=== PATIENT | male | born 1965 | race Caucasian/White ===

== ENCOUNTER 2018-07-25 09:58 | Emergency (ER) | payer SELFPAY ==
[~2018-07-25] VITALS: Ht 175.3 cm; Wt 83.0 kg
[2018-07-25 10:31] LABS: BASOPHILS % (AUTO) 0 % (0-10); EOSINOPHILS % (AUTO) 1 % (0-10); HEMATOCRIT 38 % (40-54); HEMOGLOBIN 12.8 G/DL (13.3-17.7); LYMPHOCYTES % (AUTO) 16 % (12-44); MEAN CORPUSCULAR HEMOGLOBIN 29 PG (25-34); MEAN CORPUSCULAR HGB CONC 33 G/DL (32-36); MEAN CORPUSCULAR VOLUME 87 FL (80-99); MEAN PLATELET VOLUME 9.7 FL (7.4-10.4); MONOCYTES % (AUTO) 10 % (0-12); NEUTROPHILS # (AUTO) 8.9 X 10^3 (1.8-7.8); NEUTROPHILS % (AUTO) 72 % (42-75); PLATELET COUNT 329 10^3/uL (130-400); RED CELL DISTRIBUTION WIDTH 13.7 % (10.0-14.5); WHITE BLOOD COUNT 12.4 10^3/uL (4.3-11.0)
[2018-07-25 10:32] LABS: BASOPHILS # (AUTO) 0.1 10^3/uL (0.0-0.1); EOSINOPHILS # (AUTO) 0.1 10^3/uL (0.0-0.3); MONOCYTES # (AUTO) 1.3 X 10^3 (0.0-1.0)
[2018-07-25 10:52] LABS: BUN/CREATININE RATIO 9; CALCIUM 8.9 MG/DL (8.5-10.1); CARBON DIOXIDE 15 MMOL/L (21-32); CHLORIDE 98 MMOL/L (98-107); CREATININE SERUM 1.17 MG/DL (0.60-1.30); GFR ESTIMATED > 60; GLUCOSE 136 MG/DL (70-105); POTASSIUM 4.2 MMOL/L (3.6-5.0); SODIUM 133 MMOL/L (135-145)
[2018-07-25] MEDS ORDERED: morphine INJ 10 MG/ML 1ML (SYR OR VIAL) ONE (10:52)
[2018-07-25 10:53] LABS: ALANINE AMINOTRANSFERASE 19 U/L (0-55); ALBUMIN 3.6 GM/DL (3.2-4.5); ALKALINE PHOSPHATASE 67 U/L (40-136); BILIRUBIN,TOTAL 0.4 MG/DL (0.1-1.0)
[2018-07-25] MEDS ORDERED: morphine PF (DURAMORPH) 10 MG/10 ML AMP IV ONE (11:00)
[2018-07-25] MEDS ORDERED: methylPREDNISolone 125 MG (Solu-MEDROL) VIAL IVP ONE (11:00)
[2018-07-25] MEDS ORDERED: ONDANSETRON 4 MG/2 ML (SDV) Z0FRAN IVP ONE (11:00)
[2018-07-25] MEDS ORDERED: RT-ALBUTEROL/IPRATROPIUM 3 ML (DUONEB) VIAL INH ONE (11:00)
[2018-07-25] MEDS ORDERED: NS IV 1000 ML 1,000 ML IV SCH (11:30)
--- NOTE | 2018-07-25 11:31 | ED Cough/URI ---
General Chief Complaint: Respiratory Problems Stated Complaint: RT LUNG PAIN; SOB Nursing Triage Note: Patient reports shortness of breath and cough for 3 weeks, sudden worsening of shortness of breath and sudden onset of right chest pain at 5 am this morning. Sepsis Screen: Possible Sepsis Risk Source: patient Exam Limitations: no limitations History of Present Illness Date Seen by Provider: Jul 25, 2018 Time Seen by Provider: 10:00 Initial Comments 52-year-old male with history of COPD presents with productive cough, nasal congestion, rhinorrhea for the past 2 weeks who presents with acute onset right- sided chest wall pain awaking him from sleeping. Chest pain did awake patient from sleep. Resulting in COPD exacerbation. Patient has low-grade temperature 100.3. Denies productive cough. No wheezing, leg pain or swelling. No history of DVT, PE or CAD. No medications or therapies taken prior to arrival. Timing/Duration: this morning Severity/Quality: moderate, dry cough Prior Episodes/Possible Cause: no prior episodes Modifying Factors: Improves With Coughing Associated Symptoms: cough, dizziness, earache, fever/chills Allergies and Home Medications Allergies Coded Allergies: No Known Drug Allergies (Unverified , 07/25/18) Patient Home Medication List Home Medication List Reviewed: Yes Review of Systems Review of Systems Constitutional: fever, malaise EENTM: nose congestion Respiratory: cough, short of breath Cardiovascular: chest pain; No edema, No palpitations, No syncope Gastrointestinal: no symptoms reported Genitourinary: no symptoms reported Musculoskeletal: no symptoms reported Skin: no symptoms reported Psychiatric/Neurological: No Symptoms Reported Hematologic/Lymphatic: No Symptoms Reported Past Mvaipko-Qybvyf-Pbmmts Hx Past Med/Social Hx: Reviewed Nursing Past Med/Soc Hx Patient Social History Recent Foreign Travel: No Contact w/Someone Who Travel: No Recent Infectious Disease Expo: No Physical Exam Vital Signs - First Documented 07/25/18 10:08 Temp 100.3 Pulse 97 Resp 28 B/P (MAP) 120/74 (89) Pulse Ox 98 O2 Delivery Room Air Capillary Refill : Less Than 3 Seconds Height: 5'9.00" Weight: 183lbs. oz. 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 as tested Progress/Results/Core Measures Suspected Sepsis Recent Fever Within 48 Hours: Yes Infection Criteria Present: Suspected New Infection New/Unexplained Altered Menta: No Sepsis Screen: Possible Sepsis Risk SIRS Temperature:100.3 Pulse: 97 Respiratory Rate: 28 Laboratory Tests 07/25/18 10:18: White Blood Count 12.4H Blood Pressure 120 /74 Mean: 89 Laboratory Tests 07/25/18 10:18: Creatinine 1.17, Platelet Count 329, Total Bilirubin 0.4 Results/Orders Lab Results Laboratory Tests Test 07/25/18 10:18 Range/Units White Blood Count 12.4 H 4.3-11.0 10^3/uL Red Blood Count 4.42 4.35-5.85 10^6/uL Hemoglobin 12.8 L 13.3-17.7 G/DL Hematocrit 38 L 40-54 % Mean Corpuscular Volume 87 80-99 FL Mean Corpuscular Hemoglobin 29 25-34 PG Mean Corpuscular Hemoglobin Concent 33 32-36 G/DL Red Cell Distribution Width 13.7 10.0-14.5 % Platelet Count 329 130-400 10^3/uL Mean Platelet Volume 9.7 7.4-10.4 FL Neutrophils (%) (Auto) 72 42-75 % Lymphocytes (%) (Auto) 16 12-44 % Monocytes (%) (Auto) 10 0-12 % Eosinophils (%) (Auto) 1 0-10 % Basophils (%) (Auto) 0 0-10 % Neutrophils # (Auto) 8.9 H 1.8-7.8 X 10^3 Lymphocytes # (Auto) 2.0 1.0-4.0 X 10^3 Monocytes # (Auto) 1.3 H 0.0-1.0 X 10^3 Eosinophils # (Auto) 0.1 0.0-0.3 10^3/uL Basophils # (Auto) 0.1 0.0-0.1 10^3/uL D-Dimer 1.03 H 0.00-0.49 UG/ML Sodium Level 133 L 135-145 MMOL/L Potassium Level 4.2 3.6-5.0 MMOL/L Chloride Level 98 98-107 MMOL/L Carbon Dioxide Level 15 L 21-32 MMOL/L Anion Gap 20 H 5-14 MMOL/L Blood Urea Nitrogen 11 7-18 MG/DL Creatinine 1.17 0.60-1.30 MG/DL Estimat Glomerular Filtration Rate > 60 BUN/Creatinine Ratio 9 Glucose Level 136 H 70-105 MG/DL Calcium Level 8.9 8.5-10.1 MG/DL Corrected Calcium 9.2 8.5-10.1 MG/DL Total Bilirubin 0.4 0.1-1.0 MG/DL Aspartate Amino Transf (AST/SGOT) 20 5-34 U/L Alanine Aminotransferase (ALT/SGPT) 19 0-55 U/L Alkaline Phosphatase 67 40-136 U/L Total Protein 8.0 6.4-8.2 GM/DL Albumin 3.6 3.2-4.5 GM/DL Micro Results Microbiology 07/25/18 Influenza Types A,B Antigen (WILLIAM) - Final, Complete My Orders Orders - LINDSAY HENNING DO Chest Pa/Lat (2 View) (07/25/18 10:17) Cbc With Automated Diff (07/25/18 10:20) Comprehensive Metabolic Panel (07/25/18 10:20) Fibrin Degradation Products (07/25/18 10:20) Influenza A And B Antigens (07/25/18 10:48) Morphine Pf Inj (Duramorph Pf Inj) (07/25/18 11:00) Ondansetron Injection (Zofran Injectio (07/25/18 11:00) Methylprednisolone Sod Succ (Solu-Medrol (07/25/18 11:00) Albuterol/Ipra Inhalation Soln (Duoneb I (07/25/18 11:00) Svn Small Volume Nebulizer (07/25/18 10:48) Morphine Injection (Morphine Injection (07/25/18 10:52) Ct Angio Chest W (07/25/18 11:16) Ns Iv 1000 Ml (Sodium Chloride 0.9%) (07/25/18 11:30) Iopamidol 61% Injection (Isovue 300 61% (07/25/18 11:45) Sodium Chloride Flush (Catheter Flush Sy (07/25/18 11:45) Contrast Received (Contrast Received) (07/25/18 11:45) Ns (Ivpb) (Sodium Chloride 0.9% Ivpb Bag (07/25/18 11:45) Azithromycin Tablet (Zithromax Tablet) (07/25/18 12:30) Levofloxacin Tablet (Levaquin Tablet) (07/25/18 12:30) Medications Given in ED Current Medications Medications Dose Ordered Sig/Shalonda Route Start Time Stop Time Status Last Admin Dose Admin Albuterol/ Ipratropium 3 ml ONCE ONCE INH 07/25/18 11:00 07/25/18 11:01 DC 07/25/18 10:57 3 ML Iopamidol 100 ml ONCE ONCE IV 07/25/18 11:45 07/25/18 11:52 DC 07/25/18 11:51 125 ML Methylprednisolone Sodium Succinate 125 mg ONCE ONCE IVP 07/25/18 11:00 07/25/18 11:01 DC 07/25/18 10:56 125 MG Morphine Sulfate 10 mg STK-MED ONCE .ROUTE 07/25/18 10:52 07/25/18 10:55 DC 07/25/18 10:57 4 MG Ondansetron HCl 4 mg ONCE ONCE IVP 07/25/18 11:00 07/25/18 11:01 DC 07/25/18 10:56 4 MG Sodium Chloride 10 ml NEEDED PRN IV 07/25/18 11:45 07/25/18 11:52 10 ML Sodium Chloride 50 ml ONCE ONCE IV 07/25/18 11:45 07/25/18 11:52 DC 07/25/18 11:52 50 ML Vital Signs/I&O 07/25/18 07/25/18 10:08 11:58 Temp 100.3 101.0 Pulse 97 100 Resp 28 24 B/P (MAP) 120/74 (89) 141/79 (99) Pulse Ox 98 96 O2 Delivery Room Air Room Air Capillary Refill : Less Than 3 Seconds Blood Pressure Mean: 89 Departure Impression Primary Impression: Pneumonia Additional Impressions: COPD with exacerbation Chest wall pain Disposition: HOME, SELF-CARE Condition: Stable Departure-Patient Inst. Decision time for Depature: 12:34 Referrals: RADHA MOJICA DO (PCP/Family) Primary Care Physician Patient Instructions: Pneumonia, Adult (DC) Add. Discharge Instructions: All discharge instructions reviewed with patient and/or family. Voiced understanding. Scripts Albuterol Sulfate (Proventil Hfa) 6.7 Gm Hfa.aer.ad 6.7 GM INH Q6H, #1 GM 0 Refills Prov: LINDSAY HENNING DO 07/25/18 Hydrocodone/Acetaminophen ([place] 10-325 Tablet) 1 Each Tablet 1 TAB PO Q6H PRN for PAIN-MODERATE MDD 5, #15 TAB Prov: LINDSAY HENNING DO 07/25/18 Prednisone (Prednisone) 20 Mg Tab 80 MG PO DAILY, #6 TAB 0 Refills Prov: LINDSAY HENNING DO 07/25/18 Levofloxacin (Levaquin) 750 Mg Tablet 750 MG PO DAILY, #7 TAB Prov: LINDSAY HENNING DO 07/25/18 LINDSAY HENNING DO Jul 25, 2018 11:30
[2018-07-25] MEDS ORDERED: NS 50 ML (IVPB) BAG IV ONE (11:45)
[2018-07-25] MEDS ORDERED: CATHETER FLUSH 10 ML SYR IV PRN (11:45)
[2018-07-25] MEDS ORDERED: RECEIVED CONTRAST 20 ML VIAL IV SCH (11:45)
[2018-07-25] MEDS ORDERED: IOPAMIDOL 61% 100 ML (ISOVUE 300) VIAL IV ONE (11:45)
[2018-07-25 11:58] VITALS: BP 141/79
--- NOTE | 2018-07-25 12:29 | Diagnostic Imaging Report ---
INDICATION: Cough. PA and lateral views of the chest were obtained. FINDINGS: There is a right middle lobe pneumonia. The heart size is normal. There is no pleural effusion or pneumothorax. Mediastinum is unremarkable. IMPRESSION: Right middle lobe pneumonia. Dictated by: Dictated on workstation # [id number]
[2018-07-25] MEDS ORDERED: LEVOFLOXACIN 750 MG TAB (LEVAQUIN) PO ONE (12:30)
[2018-07-25] MEDS ORDERED: AZITHROMYCIN 250 MG TAB (ZITHROMAX) PO ONE (12:30)
[2018-07-25] MEDS ORDERED: LEVO750T9 PO (12:38)
[2018-07-25] MEDS ORDERED: ALBU6.7H8 INH (12:38)
[2018-07-25] MEDS ORDERED: HYDR-4196 PO (12:38)
[2018-07-25] MEDS ORDERED: PRD20T PO (12:38)
[2018-07-25 12:48] VITALS: BP 129/81
--- NOTE | 2018-07-25 12:51 | Diagnostic Imaging Report ---
PROCEDURE: CT angiography of the chest with contrast. TECHNIQUE: Multiple contiguous axial images were obtained through the chest after uneventful bolus administration of intravenous contrast. 2D reconstructed CTA MIP acquisitions were also performed. INDICATION: Cough and chest pain. FINDINGS: There is an extensive right middle lobe pneumonia. The thoracic aorta is normal in caliber and without evidence of dissection. There are no filling defects seen within the pulmonary arteries to suggest pulmonary embolism. There is no pleural or pericardial fluid. There is no pneumothorax. There is no pathologically enlarged adenopathy in the chest. The visualized intra-abdominal structures are grossly unremarkable. There are mild degenerative changes in the spine. IMPRESSION: 1. Extensive right middle lobe pneumonia. 2. No evidence of pulmonary embolism or aortic dissection. Dictated by: Dictated on workstation # [id number]
[2018-07-25] MEDS ORDERED: LEVOFLOXACIN 500 MG TAB (LEVAQUIN) ONE (12:52)
[2018-07-25 13:15] VITALS: BP 129/81
== END 2018-07-25 13:20 | disposition home or self-care (01) ==
LOC: ER FS 10:01
DX: J18.9 Pneumonia, unspecified organism (principal); J44.1 Chronic obstructive pulmonary disease with (acute) exacerbation; R07.89 Other chest pain
CPT/HCPCS: 36415; 71046; 71275; 80053; 85025; 85379; 87804

== ENCOUNTER 2018-09-25 02:26 | Emergency (ER) | payer SELFPAY ==
[~2018-09-25] VITALS: Ht 175.3 cm; Wt 81.6 kg
[~2018-09-25 02:26] MED LIST: ALBU6.7H8 INH; HYDR-4196 PO; LEVO750T9 PO; PRD20T PO
--- OUTSIDE RECORDS SUMMARY | 2018-09-25 02:31 | XMS REPORT ---
Author HENRY Jones [facility] Address [address] [place], [place] [id number] Care Team Providers Care Hoisting Engineer Name Role Phone HENRY ALVARADO PCP Allergies and Adverse Reactions Not available. Plan of Treatment Not available. Medications Not available. Problem List Not available. Vital Signs Date Time BP-Sys(mm[Hg] BP-Brit(mm[Hg]) HR(bpm) RR(rpm) Temp WT HT HC BMI BSA BMI Percentile O2 Sat(%) 08/15/2018 9:57:00 AM 140 mmHg 88 mmHg 78 bpm 18 rpm 98.1 F 188 lbs 68 in 28.585 kg/m 2.0227 m 98 % Social History Not available. History of Procedures Not available. Results Summary Not available. History Of Immunizations Not available. 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 History of Encounters Visit Date Visit Type Provider 08/15/2018 Office visit HENRY ALCANTARA
[2018-09-25] MEDS ORDERED: LIDOCAINE/EPI 2% 1:100,00 (XYLOCAINE) 20 ML VIAL ONE (02:35)
[2018-09-25] MEDS ORDERED: LIDOCAINE/EPI 1%-1:100,000 (XYLOCAINE) 20ML INJ ONE (02:45)
[2018-09-25] MEDS ORDERED: oxyCODONE/APAP 10/325MG (PERCOCET 10) TABLET PO ONE (03:30)
[2018-09-25] MEDS ORDERED: CEPHALEXIN 250 MG (KEFLEX) CAP PO ONE (03:30)
[2018-09-25] MEDS ORDERED: TETANUS,DIPTH,PERTUSS P/F (BOOSTRIX) 0.5 ML VIAL IM ONE (03:30)
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
[2018-09-25] MEDS ORDERED: CEPH-507 PO (03:44)
[2018-09-25] MEDS ORDERED: OXYC1TAB87 PO (03:44)
[2018-09-25 03:52] VITALS: BP 151/100
[2018-09-25] MEDS ORDERED: HYDROcodone/APAP 10 MG/325 MG (LORTAB) TAB PO ONE (04:00)
== END 2018-09-25 03:52 | disposition home or self-care (01) ==
LOC: EDUNIT# 02:26 → ER FS 02:28
DX: S01.441A Puncture wound with foreign body of right cheek and temporomandibular area, initial encounter (principal); S61.031A Puncture wound without foreign body of right thumb without damage to nail, initial encounter; S41.032A Puncture wound without foreign body of left shoulder, initial encounter; J44.9 Chronic obstructive pulmonary disease, unspecified; F17.210 Nicotine dependence, cigarettes, uncomplicated; Z23 Encounter for immunization; Z86.73 Personal history of transient ischemic attack (TIA), and cerebral infarction without residual deficits; Z79.52 Long term (current) use of systemic steroids; X99.1XXA Assault by knife, initial encounter
CPT/HCPCS: 12014; 12015; 29125; 90715

== ENCOUNTER 2018-10-07 17:32 | Emergency (ER) | payer SELFPAY ==
[~2018-10-07] VITALS: Ht 177.8 cm; Wt 83.9 kg
[~2018-10-07 17:32] MED LIST changes: +CEPH-507 PO; +OXYC1TAB87 PO
[2018-10-07] MEDS ORDERED: FUROSEMIDE 40 MG/4 ML INJ (LASIX) IVP ONE (17:45)
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
[2018-10-07 18:12] VITALS: BP 161/81
== END 2018-10-07 18:12 | disposition home or self-care (01) ==
LOC: EDUNIT# 17:32 → ER FS 17:33
DX: S01.81XD Laceration without foreign body of other part of head, subsequent encounter (principal); S61.011D Laceration without foreign body of right thumb without damage to nail, subsequent encounter; J44.9 Chronic obstructive pulmonary disease, unspecified; Z77.22 Contact with and (suspected) exposure to environmental tobacco smoke (acute) (chronic); Z79.52 Long term (current) use of systemic steroids; X99.9XXD Assault by unspecified sharp object, subsequent encounter

== ENCOUNTER 2021-05-19 17:03 | Day surgery (SDC) | payer OTHER ==
[~2021-05-19] VITALS: Ht 175 cm; Wt 87.5 kg
[2021-05-19] MEDS ORDERED: ASPIRIN 81 MG CHEW (CHILDREN'S ASA) ONE (17:22)
[2021-05-19] MEDS ORDERED: CLOPIDOGREL 300 MG (PLAVIX) TABLET PO ONE ×2 (17:22→17:30)
[2021-05-19 17:25] LABS: BASOPHILS % (AUTO) 1 % (0-10); EOSINOPHILS % (AUTO) 3 % (0-10); HEMATOCRIT 44 % (40-54); HEMOGLOBIN 14.4 g/dL (13.3-17.7); LYMPHOCYTES % (AUTO) 33 % (12-44); MEAN CORPUSCULAR HEMOGLOBIN 29 pg (25-34); MEAN CORPUSCULAR HGB CONC 32 g/dL (32-36); MEAN CORPUSCULAR VOLUME 89 fL (80-99); MEAN PLATELET VOLUME 9.4 fL (9.0-12.2); MONOCYTES % (AUTO) 7 % (0-12); NEUTROPHILS % (AUTO) 57 % (42-75); PLATELET COUNT 343 10^3/uL (130-400); WHITE BLOOD COUNT 9.5 10^3/uL (4.3-11.0)
[2021-05-19 17:26] LABS: BASOPHILS # (AUTO) 0.1 10^3/uL (0.0-0.1); EOSINOPHILS # (AUTO) 0.3 10^3/uL (0.0-0.3); LYMPHOCYTES # (AUTO) 3.1 X 10^3 (1.0-4.0); MONOCYTES # (AUTO) 0.6 X 10^3 (0.0-1.0); NEUTROPHILS # (AUTO) 5.4 X 10^3 (1.8-7.8)
[2021-05-19 17:30] VITALS: BP 134/84
[2021-05-19] MEDS ORDERED: ONDANSETRON 4 MG/2 ML (SDV) Z0FRAN IVP ONE (17:30)
[2021-05-19] MEDS ORDERED: ASPIRIN 81 MG CHEW (CHILDREN'S ASA) PO ONE (17:30)
[2021-05-19] MEDS ORDERED: ENOXAPARIN 100 MG/1 ML (LOVENOX) SYR SC ONE (17:30)
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
[2021-05-19 17:35] LABS: SODIUM 138 MMOL/L (135-145)
[2021-05-19 17:36] LABS: ALANINE AMINOTRANSFERASE 20 U/L (0-55); ALBUMIN 4.1 GM/DL (3.2-4.5); ALKALINE PHOSPHATASE 70 U/L (40-136); BILIRUBIN,TOTAL 0.2 MG/DL (0.1-1.0); BUN/CREATININE RATIO 8; CALCIUM 8.5 MG/DL (8.5-10.1); CARBON DIOXIDE 23 MMOL/L (21-32); CHLORIDE 103 MMOL/L (98-107); CREATININE SERUM 1.31 MG/DL (0.60-1.30); GFR ESTIMATED 56; GLUCOSE 157 MG/DL (70-105); POTASSIUM 3.8 MMOL/L (3.6-5.0); TOTAL PROTEIN 7.5 GM/DL (6.4-8.2)
[2021-05-19] MEDS ORDERED: VERAPAMIL 5 MG/2 ML (CALAN) VIAL IV ONE (17:45)
[2021-05-19] MEDS ORDERED: fentaNYL INJ 100 MCG/2 ML AMP ONE (17:46)
[2021-05-19] MEDS ORDERED: LIDOCAINE 1% INJ 20 ML 20 ML VIAL ONE (17:46)
[2021-05-19] MEDS ORDERED: NS IV 1000 ML 1,000 ML ONE (17:46)
[2021-05-19] MEDS ORDERED: HEParin (CATH LAB) 2,000 ML IV ONE (17:46)
[2021-05-19] MEDS ORDERED: HEParin 1000 UNIT/ML (10ML VIAL) FOR BOLUS ONE (17:46)
[2021-05-19] MEDS ORDERED: NITRO DRIP 25000 MCG/D5W 250 ML IV ONE (17:46)
[2021-05-19] MEDS ORDERED: MIDAZOLAM 5 MG/5 ML (VERSED) VIAL ONE (17:46)
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
--- NOTE | 2021-05-19 18:01 | Pre-Op Note & Conscious Sedat ---
Pre-Operative Progress Note H&P Reviewed The H&P was reviewed, patient examined and no changes noted. Date H&P Reviewed: May 19, 2021 Time H&P Reviewed: 18:08 Pre-Op Diagnosis: Inferior STEMI Conscious Sedation Pre-Proced ASA Score 3 For ASA 3 and 4: Consider anesthesia and medical clearance. Also, for patients with a history of failed moderate sedation consider anesthesia. Airway Lungs Heart ASA score ASA 1: a normal healthy patient ASA 2: a patient with a mild systemic disease (mid diabetes, controlled hypertension, obesity ASA 3: a patient with a severe systemic disease that limits activity (angina, COPD, prior Myocardial infarction) ASA 4: a patient with an incapacitating disease that is a constant threat to life (CHF, renal failure) ASA 5: a moribund patient not expected to survive 24 hrs. (ruptured aneurysm) ASA 6: a declared brain- patient whose organs are being harvested. For emergent operations, add the letter E after the classification Mallampati Classification Grade 2 Sedation Plan Analgesia, Amnesia, Plan communicated to team members, Discussed options with patient/fam, Discussed risks with patient/fam The patient is an appropriate candidate to undergo the planned procedure, sedation, and anesthesia. The patient immediately re-assessed prior to indication. BRENTON JORDAN JR, MD May 19, 2021 18:01
[2021-05-19] MEDS ORDERED: ATROPINE INJECTION 1 MG/10 ML SYR (ABBOTT) ONE (18:18)
[2021-05-19] MEDS ORDERED: TICAGRELOR 90 MG TABLET (BRILINTA) PO ONE (18:35)
[2021-05-19] MEDS ORDERED: PATIENT MAY USE OWN MEDS, ALL PO SCH (19:15)
[2021-05-19] MEDS ORDERED: NS IV 1000 ML 1,000 ML IV SCH (19:15)
[2021-05-19] MEDS ORDERED: ACETAMINOPHEN 325 MG TABLET PO PRN (19:30)
[2021-05-19] MEDS ORDERED: ANTACID SUSP 30 ML UDC (MYLANTA) PO PRN (19:30)
[2021-05-19] MEDS ORDERED: ZOLPIDEM 5 MG (AMBIEN) TAB PO PRN (19:30)
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
[2021-05-19] MEDS: TICAGRELOR 90 MG TABLET (BRILINTA) PO SCH (22:20)
[2021-05-19] MEDS: ROSUVASTATIN 20 MG (CRESTOR) TABLET PO SCH (22:55)
[2021-05-20 05:55] LABS: HEMATOCRIT 44 % (40-54); HEMOGLOBIN 14.5 g/dL (13.3-17.7); MEAN CORPUSCULAR HEMOGLOBIN 29 pg (25-34); MEAN CORPUSCULAR HGB CONC 33 g/dL (32-36); MEAN CORPUSCULAR VOLUME 89 fL (80-99); PLATELET COUNT 304 10^3/uL (130-400); WHITE BLOOD COUNT 13.3 10^3/uL (4.3-11.0)
[2021-05-20 06:18] LABS: POTASSIUM 4.1 MMOL/L (3.6-5.0)
[2021-05-20 06:20] LABS: CALCIUM 8.5 MG/DL (8.5-10.1)
[2021-05-20 06:24] LABS: CREATININE SERUM 1.05 MG/DL (0.60-1.30)
[2021-05-20] MEDS ORDERED: ENOXAPARIN 40 MG/0.4 ML (LOVENOX) SYR SC SCH (08:00)
[2021-05-20] MEDS ORDERED: ASPIRIN E.C. 81 MG (ECOTRIN) TAB PO SCH (09:00)
[2021-05-20] MEDS: TICAGRELOR 90 MG TABLET (BRILINTA) PO SCH ×2 (09:03→19:03)
--- NOTE | 2021-05-20 09:22 | Cardiology Progress Note ---
Progress Note-Cardiology Events since last exam Date Seen by Provider: May 20, 2021 Time Seen by Provider: 09:17 Events since last exam I am following him for inferior STEMI. He denies any further chest discomfort. He denies dyspnea, palpitations, syncope, or ankle edema. Certain portions of this document may have been dictated utilizing voice recognition technology. Inherent to this technology, typographical and grammatical errors may exist. As much as I am diligent to identify and correct these mistakes, some errors may remain in the document. Vitals Last set of Vitals Signs Vital Signs 05/20/21 05/20/21 05/20/21 05:50 07:47 08:00 Temp 36.7 Pulse 63 Resp 16 B/P (MAP) 152/89 Pulse Ox 98 O2 Delivery Room Air Labs Labs Laboratory Tests 05/19/21 17:10 05/20/21 05:26 Exam Vital Signs Vital Signs Date Time Temp Pulse Resp B/P (MAP) Pulse Ox O2 Delivery O2 Flow Rate FiO2 05/20/21 08:00 36.7 05/20/21 07:47 63 05/20/21 05:50 16 152/89 98 Room Air 05/19/21 19:35 2.00 Physical Exam General: Alert. No acute distress. Eye: No xanthelasma. HENT: Normocephalic. Neck: Jugular venous pressure does not appear elevated. Respiratory: Lungs are clear to auscultation. Respirations are non-labored. Breath sounds are equal. Symmetrical chest wall expansion. Cardiovascular: Normal rate. Regular rhythm. No murmur. No gallop. No edema. Gastrointestinal: Soft. Normal bowel sounds. Skin: Warm. Dry. Neurologic: Alert and oriented to person, place, time. Cranial nerves 3-11 grossly intact. Psychiatric: Cooperative. Appropriate mood & affect. Labs Laboratory Tests Test 05/19/21 17:10 05/19/21 22:00 05/20/21 05:26 Range/Units White Blood Count 9.5 13.3 H 4.3-11.0 10^3/uL Red Blood Count 4.97 5.00 4.30-5.52 10^6/uL Hemoglobin 14.4 14.5 13.3-17.7 g/dL Hematocrit 44 44 40-54 % Mean Corpuscular Volume 89 89 80-99 fL Mean Corpuscular Hemoglobin 29 29 25-34 pg Mean Corpuscular Hemoglobin Concent 32 33 32-36 g/dL Red Cell Distribution Width 13.3 13.4 10.0-14.5 % Platelet Count 343 304 130-400 10^3/uL Mean Platelet Volume 9.4 10.0 9.0-12.2 fL Immature Granulocyte % (Auto) 0 % Neutrophils (%) (Auto) 57 42-75 % Lymphocytes (%) (Auto) 33 12-44 % Monocytes (%) (Auto) 7 0-12 % Eosinophils (%) (Auto) 3 0-10 % Basophils (%) (Auto) 1 0-10 % Neutrophils # (Auto) 5.4 1.8-7.8 X 10^3 Lymphocytes # (Auto) 3.1 1.0-4.0 X 10^3 Monocytes # (Auto) 0.6 0.0-1.0 X 10^3 Eosinophils # (Auto) 0.3 0.0-0.3 10^3/uL Basophils # (Auto) 0.1 0.0-0.1 10^3/uL Immature Granulocyte # (Auto) 0.0 0.0-0.1 10^3/uL Sodium Level 138 135 135-145 MMOL/L Potassium Level 3.8 4.1 3.6-5.0 MMOL/L Chloride Level 103 107 98-107 MMOL/L Carbon Dioxide Level 23 18 L 21-32 MMOL/L Anion Gap 12 10 5-14 MMOL/L Blood Urea Nitrogen 10 9 7-18 MG/DL Creatinine 1.31 H 1.05 0.60-1.30 MG/DL Estimat Glomerular Filtration Rate 56 73 BUN/Creatinine Ratio 8 9 Glucose Level 157 H 108 H 70-105 MG/DL Calcium Level 8.5 8.5 8.5-10.1 MG/DL Corrected Calcium 8.4 L 8.5-10.1 MG/DL Total Bilirubin 0.2 0.1-1.0 MG/DL Aspartate Amino Transf (AST/SGOT) 17 5-34 U/L Alanine Aminotransferase (ALT/SGPT) 20 0-55 U/L Alkaline Phosphatase 70 40-136 U/L Troponin I < 0.30 16.548 *H 56.336 *H <0.028 NG/ML Total Protein 7.5 6.4-8.2 GM/DL Albumin 4.1 3.2-4.5 GM/DL Triglycerides Level 176 H <150 MG/DL Cholesterol Level 182 < 200 MG/DL LDL Cholesterol Direct 143 H 1-129 MG/DL VLDL Cholesterol 35 5-40 MG/DL HDL Cholesterol 27 L 40-60 MG/DL Diagnosis/Problems Diagnosis/Problems (1) ST elevation myocardial infarction (STEMI) of inferior wall Status: Acute Assessment & Plan: No further chest pain. He was treated with 2 drug-eluting stents to the distal right coronary artery for the myocardial infarction. He was also treated with 1 drug-eluting stent to the left circumflex coronary artery for severe disease in this vessel. He is on aspirin, ticagrelor, beta- leelee and high-dose statin medication. I will plan on an echocardiogram tomorrow and if he is doing well, probably discharged home tomorrow. He does not have any insurance. I will plan to keep him on ticagrelor for 1 month using a 30-day free card and then change him to clopidogrel 1 month later. (2) Acute kidney injury Assessment & Plan: His kidney function has improved overnight. I will obtain a [facility] metabolic panel tomorrow. (3) Primary hypertension Assessment & Plan: His blood pressures are intermittently elevated. I suspect he has undiagnosed hypertension. I will titrate the carvedilol to get him normotensive. (4) Mixed hyperlipidemia Assessment & Plan: He also appears to have had undiagnosed hyperlipidemia. He is now on intensive dose statin medication due to the acute myocardial infarction. (5) Chronic obstructive pulmonary disease Assessment & Plan: He will be given bronchodilators if needed. (6) Cigarette smoker Assessment & Plan: He needs to quit smoking. BRENTON JORDAN JR, MD May 20, 2021 09:22
--- NOTE | 2021-05-20 09:49 | Diagnostic Imaging Report ---
INDICATION: Coronary artery disease COMPARISON: 07/25/2018 TECHNIQUE: 2 radiographs of the chest dated 05/20/2021 FINDINGS: The cardiac silhouette is within normal limits in size. No significant pulmonary vascular congestion. The left lung is clear. Mild right middle lobe opacities are present with associated trace pleural fluid versus pleural thickening associated with the right major fissure. No large-volume pleural effusion. No pneumothorax. No acute osseous abnormality. IMPRESSION: Mild atelectasis and/or pneumonitis within the right middle lobe with associated trace pleural fluid versus pleural thickening associated with the right major fissure. Dictated by: Dictated on workstation # [id number]
[2021-05-20] MEDS: ROSUVASTATIN 20 MG (CRESTOR) TABLET PO SCH (19:03)
[2021-05-20] MEDS ORDERED: CARV3.122 PO (19:06)
[2021-05-20] MEDS ORDERED: ASPI-1238 PO (19:06)
[2021-05-20] MEDS ORDERED: CLOP75TA28 PO (19:06)
[2021-05-20] MEDS ORDERED: ROSU20TA32 PO (19:06)
--- NOTE | 2021-05-20 19:07 | Cardiology Progress Note ---
Progress Note-Cardiology Events since last exam Date Seen by Provider: May 20, 2021 Time Seen by Provider: 19:06 Events since last exam The patient wants to leave AGAINST MEDICAL ADVICE. Out of concern for his s afety, I will send prescriptions for clopidogrel, carvedilol and rosuvastatin to [facility] pharmacy in [place], [place]. I asked the patient, her office on Saturday to schedule a follow-up visit. Vitals Last set of Vitals Signs Vital Signs 05/20/21 17:12 Temp 36.6 Pulse 70 Resp 14 B/P (MAP) 140/82 Pulse Ox 99 O2 Delivery Room Air Labs Labs Laboratory Tests 05/20/21 05:26 Exam Vital Signs Vital Signs Date Time Temp Pulse Resp B/P (MAP) Pulse Ox O2 Delivery O2 Flow Rate FiO2 05/20/21 17:12 36.6 70 14 140/82 99 Room Air 05/19/21 19:35 2.00 Labs Laboratory Tests Test 05/19/21 22:00 05/20/21 05:26 Range/Units Troponin I 16.548 *H 56.336 *H <0.028 NG/ML White Blood Count 13.3 H 4.3-11.0 10^3/uL Red Blood Count 5.00 4.30-5.52 10^6/uL Hemoglobin 14.5 13.3-17.7 g/dL Hematocrit 44 40-54 % Mean Corpuscular Volume 89 80-99 fL Mean Corpuscular Hemoglobin 29 25-34 pg Mean Corpuscular Hemoglobin Concent 33 32-36 g/dL Red Cell Distribution Width 13.4 10.0-14.5 % Platelet Count 304 130-400 10^3/uL Mean Platelet Volume 10.0 9.0-12.2 fL Sodium Level 135 135-145 MMOL/L Potassium Level 4.1 3.6-5.0 MMOL/L Chloride Level 107 98-107 MMOL/L Carbon Dioxide Level 18 L 21-32 MMOL/L Anion Gap 10 5-14 MMOL/L Blood Urea Nitrogen 9 7-18 MG/DL Creatinine 1.05 0.60-1.30 MG/DL Estimat Glomerular Filtration Rate 73 BUN/Creatinine Ratio 9 Glucose Level 108 H 70-105 MG/DL Calcium Level 8.5 8.5-10.1 MG/DL Triglycerides Level 176 H <150 MG/DL Cholesterol Level 182 < 200 MG/DL LDL Cholesterol Direct 143 H 1-129 MG/DL VLDL Cholesterol 35 5-40 MG/DL HDL Cholesterol 27 L 40-60 MG/DL Diagnosis/Problems Diagnosis/Problems (1) ST elevation myocardial infarction (STEMI) of inferior wall Status: Acute Assessment & Plan: No further chest pain. He was treated with 2 drug-eluting stents to the distal right coronary artery for the myocardial infarction. He was also treated with 1 drug-eluting stent to the left circumflex coronary artery for severe disease in this vessel. He is on aspirin, ticagrelor, beta- leelee and high-dose statin medication. I will plan on an echocardiogram tomorrow and if he is doing well, probably discharged home tomorrow. He does not have any insurance. I will plan to keep him on ticagrelor for 1 month using a 30-day free card and then change him to clopidogrel 1 month later. (2) Acute kidney injury Assessment & Plan: His kidney function has improved overnight. I will obtain another metabolic panel tomorrow. (3) Primary hypertension Assessment & Plan: His blood pressures are intermittently elevated. I suspect he has undiagnosed hypertension. I will titrate the carvedilol to get him normotensive. (4) Mixed hyperlipidemia Assessment & Plan: He also appears to have had undiagnosed hyperlipidemia. He is now on intensive dose statin medication due to the acute myocardial infarction. (5) Chronic obstructive pulmonary disease Assessment & Plan: He will be given bronchodilators if needed. (6) Cigarette smoker Assessment & Plan: He needs to quit smoking. BRENTON JORDAN JR, MD May 20, 2021 19:07
--- NOTE | 2021-05-20 20:13 | Cardiac Cath Report ---
CARDIAC CATHETERIZATION THIS IS IN ERROR. BRENTON JORDAN JR, MD May 20, 2021 20:13
[2021-05-20] MEDS ORDERED: PATIENT MAY USE OWN MEDS, ALL PO SCH (20:15)
[2021-05-20] MEDS ORDERED: NS IV 1000 ML 1,000 ML IV SCH (20:15)
== END 2021-05-20 19:14 | disposition left against medical advice (07) ==
LOC: EDUNIT# 17:10 → ER FS 17:11 → SUATTDRO 17:40 → CATH 18:03 → CSD 20:19 → CATH 05-20 19:14
PROVIDERS: ATTEND Internal Medicine Cardiovascular Disease
DX: I21.11 ST elevation (STEMI) myocardial infarction involving right coronary artery (principal); Z79.899 Other long term (current) drug therapy; J44.9 Chronic obstructive pulmonary disease, unspecified; Z86.73 Personal history of transient ischemic attack (TIA), and cerebral infarction without residual deficits
CPT/HCPCS: 36415; 71046; 80048; 80053; 80061; 83036; 84484; 85025; 85027; 93005; 93458

== ENCOUNTER → 2021-06-14 | Outpatient (CLI) | payer OTHER ==
[~2021-06-14] MED LIST changes: +ASPI-1238 PO; +CARV3.122 PO; +CLOP75TA28 PO; +ROSU20TA32 PO
== END ==
LOC: CARD 13:30
PROVIDERS: ATTEND Internal Medicine Cardiovascular Disease
DX: I08.0 Rheumatic disorders of both mitral and aortic valves (principal); I25.10 Atherosclerotic heart disease of native coronary artery without angina pectoris
CPT/HCPCS: 93306

== ENCOUNTER 2022-01-05 04:51 | Observation (INO) | payer SELFPAY ==
[~2022-01-05] VITALS: Ht 175.3 cm; Wt 86.0 kg
[2022-01-05] MEDS ORDERED: METOCLOPRAMIDE INJ 10 MG/2 ML (REGLAN) IVP STA (04:58)
--- NOTE | 2022-01-05 05:14 | ED Chest Pain ---
General Chief Complaint: Chest Pain Stated Complaint: CP Source: patient (PT IS LIMITED HISTORIAN) (REBEKAH HANDA Ulysses TA) History of Present Illness Date Seen by Provider: Jan 05, 2022 Time Seen by Provider: 04:57 Initial Comments PT ARRIVES VIA [facility] FROM HOME IN [facility] HE HAS NOT FELT WELL ALL DAY LONG--HAS HAD DIARRHEA ALL DAY AND NAUSEA, NO VOMITING, AND BEEN LETHARGIC ALL DAY PT HAS BEEN INCONTINENT OF STOOL PRIOR TO ARRIVAL CHEST PAIN BEGAN SOMETIME TONIGHT--WAS LAYING IN BED WHEN PAIN BEGAN STATES PAIN IS JUST A DISCOMFORT NOW + SHORTNESS OF BREATH SLIGHT COUGH + SWEATS DOES NOT THINK HE HAS HAD FEVER NO ABDOMINAL PAIN NO SWELLING IN LEGS/FEET BP WAS 100/40 FOR EMS--GAVE 1 LITER OF SALINE PRIOR TO ARRIVAL BP 120 SYSTOLIC ON ARRIVAL HERE PT HAS HISTORY OF AL WITH STENTS X 2 TO RCA AND LEFT CIRC--DONE 05/19/[address] JORDAN PT HAD NO PRIOR HISTORY OF ANY MEDICAL PROBLEMS BEFORE THEN, BUT NEVER WENT TO THE DR. PT CONTINUES TO SMOKE EMS REPORT "STEMI" WITH ST ELEVATION IN V1,V2, V3 EMS GAVE ASA 324 MG, AND ZOFRAN 8 MG IV--PT STILL WITH NAUSEA 0450--DR. VELIZ WAS CONTACTED AFTER REPORT CALLED BY EMS. HE ADVISES TO CALL IN [employer]ING [employer]SULTANT TEAM. 0500--DR. VELIZ WAS CONTACTED AGAIN AFTER PT'S ARRIVAL AND EKG DONE HERE--NO EVIDENCE OF STEMI, HE ADVISES TO CANCEL P[employer]ES [employer]ANT TEAM PT HAS NOT HAD COVID VACCINE PCP: DR. MOJICA (JOHNIE HAND DO) Allergies and Home Medications Allergies Coded Allergies: codeine (Verified Allergy, Unknown, 05/19/21) Patient Home Medication List Home Medication List Reviewed: Yes (ROSE ORDONEZ MD) Aspirin (Aspirin EC) 81 Mg Tablet.dr, 81 MG PO DAILY Prescribed by: BRENTON JORDAN JR, MD on 05/20/211905 Last Action: Continued Carvedilol (Coreg) 6.25 Mg Tablet, 6.25 MG PO BID Prescribed by: YASH DAVID on 01/05/22 8744 Last Action: New Order Clopidogrel Bisulfate (Clopidogrel) 75 Mg Tablet, 75 MG PO DAILY Prescribed by: BRENTON JORDAN JR, MD on 05/20/211905 Last Action: Continued Rosuvastatin Calcium (Rosuvastatin Calcium) 20 Mg Tablet, 20 MG PO HS Prescribed by: BRENTON JORDAN JR, MD on 05/20/211905 Last Action: Continued Discontinued Medications Albuterol Sulfate (Proventil Hfa) 6.7 Gm Hfa.aer.ad, 6.7 GM INH Q6H Discontinued Reason: No Longer Taking Prescribed by: LINDSAY HENNING on 07/25/181237 Last Action: Discontinued Carvedilol (Carvedilol) 3.125 Mg Tablet, 3.125 MG PO BID WITH MEALS Discontinued Reason: No Longer Taking Prescribed by: BRENTON JORDAN JR, MD on 05/20/211905 Last Action: Discontinued Cephalexin (Keflex) 500 Mg Capsule, 500 MG PO TID Discontinued Reason: No Longer Taking Prescribed by: LINDSAY HENNING on 09/25/18343 Last Action: Discontinued Hydrocodone/Acetaminophen ([place] 10-325 Tablet) 1 Each Tablet, 1 TAB PO Q6H PRN for PAIN-MODERATE Discontinued Reason: No Longer Taking Prescribed by: LINDSAY HENNING on 07/25/181237 Last Action: Discontinued Levofloxacin (Levaquin) 750 Mg Tablet, 750 MG PO DAILY Discontinued Reason: No Longer Taking Prescribed by: LINDSAY HENNING on 07/25/181237 Last Action: Discontinued Oxycodone HCl/Acetaminophen (Percocet 5-325 mg Tablet) 1 Each Tablet, 1 TAB PO Q4H Discontinued Reason: No Longer Taking Prescribed by: LINDSAY HENNING on 09/25/18343 Last Action: Discontinued Prednisone (Prednisone) 20 Mg Tab, 80 MG PO DAILY Discontinued Reason: No Longer Taking Prescribed by: LINDSAY HENNING on 07/25/181237 Last Action: Discontinued Review of Systems Review of Systems Constitutional: chills, diaphoresis, malaise, weakness Respiratory: See HPI, Shortness of Air Cardiovascular: See HPI, Chest Pain Gastrointestinal: Diarrhea, Nausea, Vomiting Musculoskeletal: no symptoms reported Skin: no symptoms reported Psychiatric/Neurological: No Symptoms Reported (JOHNIE HAND DO) Past Zwqwlox-Vamzcn-Xuydej Hx Patient Social History Tobacco Use?: Yes Tobacco type used: Cigarettes Smoking Status: Current Everyday Smoker Substance use?: No Alcohol Use?: No (JOHNIE HAND DO) Seasonal Allergies Seasonal Allergies: No (JOHNIE HAND DO) Past Medical History Surgery/Hospitalization HX: COPD Surgeries: Yes Cardiac, Coronary Stent Respiratory: Yes Asthma, COPD Cardiac: Yes (STEMI 05/19/21 WITH STENTS X 2) Heart Attack Neurological: Yes TIA Genitourinary: No Gastrointestinal: No Musculoskeletal: No Endocrine: No HEENT: No Cancer: No Psychosocial: No Integumentary: No Blood Disorders: No (JOHNIE HAND DO) Family Medical History SOCIAL HISTORY: -SMOKES 1 PPD -DENIES ETOH -DENIES DRUG USE PAST SURGICAL HISTORY: -CARDIAC CATH WITH STENTS X 2 TO RCA AND LEFT CIRC 05/19/[address] JORDAN (JOHNIE HAND DO) Physical Exam Vital Signs Vital Signs - First Documented 01/05/22 05:00 O2 Flow Rate 2.00 (ROSE ORDONEZ MD) Vital Signs Capillary Refill : (JOHNIE HAND DO) Height, Weight, BMI Height: 5'10.00" Weight: 185lbs. 0oz. 83.145002lk; 28.57 BMI Method:Stated General Appearance: Other (VERY LETHARGIC, SKIN IS COLD AND MOTTLED. PT HAS BEEN INCONTINENT OF STOOL PRIOR TO ARRIVAL) Neck: Normal Inspection Respiratory: Rales (RIGHT > LEFT) Cardiovascular: Regular Rate, Rhythm, No Edema, No JVD, No Murmur, Normal Peripheral Pulses Gastrointestinal: Distended (FIRM), Hernia (SOFT, REDUCIBLE, NON-TENDER UMBILICAL HERNIA); No Tenderness Extremity: No Pedal Edema, Slow Capillary Refill Neurologic/Psychiatric: Alert (BUT LETHARGIC), Oriented x3, No Motor/Sensory Deficits Skin: Cool, Diaphoresis, Mottled, Pallor, Tattoos/Piercings (TATTOOS) (Anson HAND DO) Focused Exam Lactate Level 01/05/22 05:07: Lactic Acid Level 1.68 (ROSE ORDONEZ MD) Lactic Acid Level Laboratory Tests Test 01/05/22 05:07 Lactic Acid Level 1.68 MMOL/L (0.50-2.00) (ROSE ORDONEZ MD) Procedures/Interventions Suture Size: 4-0 (JOHNIE HAND DO) Progress/Results/Core Measures Results/Orders Lab Results Laboratory Tests Test 01/05/22 05:07 01/05/22 07:34 8/12/22 09:14 Range/Units White Blood Count 12.1 H 4.3-11.0 10^3/uL Red Blood Count 6.21 H 4.30-5.52 10^6/uL Hemoglobin 18.3 H 13.3-17.7 g/dL Hematocrit 56 H 40-54 % Mean Corpuscular Volume 90 80-99 fL Mean Corpuscular Hemoglobin 30 25-34 pg Mean Corpuscular Hemoglobin Concent 33 32-36 g/dL Red Cell Distribution Width 13.4 10.0-14.5 % Platelet Count 433 H 130-400 10^3/uL Mean Platelet Volume 9.7 9.0-12.2 fL Immature Granulocyte % (Auto) 0 % Neutrophils (%) (Auto) 73 42-75 % Lymphocytes (%) (Auto) 21 12-44 % Monocytes (%) (Auto) 6 0-12 % Eosinophils (%) (Auto) 0 0-10 % Basophils (%) (Auto) 0 0-10 % Neutrophils # (Auto) 8.8 H 1.8-7.8 10^3/uL Lymphocytes # (Auto) 2.5 1.0-4.0 10^3/uL Monocytes # (Auto) 0.7 0.0-1.0 10^3/uL Eosinophils # (Auto) 0.1 0.0-0.3 10^3/uL Basophils # (Auto) 0.0 0.0-0.1 10^3/uL Immature Granulocyte # (Auto) 0.0 0.0-0.1 10^3/uL Erythrocyte Sedimentation Rate 1 0-30 MM/HR Prothrombin Time 13.6 12.2-14.7 SEC INR Comment 1.0 0.8-1.4 Activated Partial Thromboplast Time 31 24-35 SEC D-Dimer 2.53 H 0.00-0.49 UG/ML Sodium Level 137 135-145 MMOL/L Potassium Level 3.7 3.6-5.0 MMOL/L Chloride Level 111 H 98-107 MMOL/L Carbon Dioxide Level 15 L 21-32 MMOL/L Anion Gap 11 5-14 MMOL/L Blood Urea Nitrogen 14 7-18 MG/DL Creatinine 1.49 H 0.60-1.30 MG/DL Estimat Glomerular Filtration Rate 54 BUN/Creatinine Ratio 9 Glucose Level 168 H 70-105 MG/DL Lactic Acid Level 1.68 0.50-2.00 MMOL/L Calcium Level 8.5 8.5-10.1 MG/DL Corrected Calcium 8.7 8.5-10.1 MG/DL Magnesium Level 2.1 1.6-2.4 MG/DL Total Bilirubin 0.4 0.1-1.0 MG/DL Aspartate Amino Transf (AST/SGOT) 12 5-34 U/L Alanine Aminotransferase (ALT/SGPT) 19 0-55 U/L Alkaline Phosphatase 58 40-136 U/L Total Creatine Kinase 111 30-200 U/L Creatine Kinase MB 2.8 <6.6 NG/ML Myoglobin 54.7 10.0-92.0 NG/ML Troponin I < 0.028 < 0.028 <0.028 NG/ML C-Reactive Protein High Sensitivity 0.50 0.00-0.50 MG/DL B-Type Natriuretic Peptide < 10.0 <100.0 PG/ML Total Protein 6.9 6.4-8.2 GM/DL Albumin 3.7 3.2-4.5 GM/DL Amylase Level 78 25-125 U/L Lipase 37 8-78 U/L Procalcitonin 0.10 H <0.10 NG/ML Serum Alcohol < 10 <10 MG/DL Influenza Type A (RT-PCR) Not Detected Not Detecte Influenza Type B (RT-PCR) Not Detected Not Detecte SARS-CoV-2 RNA (RT-PCR) Not Detected Not Detecte Urine Color YELLOW Urine Clarity CLEAR Urine pH 5.5 5-9 Urine Specific [place] 1.010 L 1.016-1.022 Urine Protein 1+ H NEGATIVE Urine Glucose (UA) NEGATIVE NEGATIVE Urine Ketones NEGATIVE NEGATIVE Urine Nitrite NEGATIVE NEGATIVE Urine Bilirubin NEGATIVE NEGATIVE Urine Urobilinogen 0.2 < = 1.0 MG/DL Urine Leukocyte Esterase NEGATIVE NEGATIVE Urine RBC (Auto) NEGATIVE NEGATIVE Urine RBC NONE /HPF Urine WBC NONE /HPF Urine Squamous Epithelial Cells RARE /HPF Urine Crystals PRESENT H /LPF Urine Amorphous Sediment RARE GREG URATES H /LPF Urine Bacteria TRACE /HPF Urine Casts PRESENT /LPF Urine Hyaline Casts 10-25 H /LPF Urine Mucus SMALL H /LPF Urine Culture Indicated CULTURE PENDING Urine Opiates Screen NEGATIVE NEGATIVE Urine Oxycodone Screen NEGATIVE NEGATIVE Urine Methadone Screen NEGATIVE NEGATIVE Urine Propoxyphene Screen NEGATIVE NEGATIVE Urine Barbiturates Screen NEGATIVE NEGATIVE Ur Tricyclic Antidepressants Screen NEGATIVE NEGATIVE Urine Phencyclidine Screen NEGATIVE NEGATIVE Urine Amphetamines Screen POSITIVE H NEGATIVE Urine Methamphetamines Screen POSITIVE H NEGATIVE Urine Benzodiazepines Screen NEGATIVE NEGATIVE Urine Cocaine Screen NEGATIVE NEGATIVE Urine Cannabinoids Screen POSITIVE H NEGATIVE (ROSE ORDONEZ MD) My Orders Orders - ROSE ORDONEZ MD Ct Head Wo (01/05/22 07:45) Troponin I [place] (01/05/22 09:10) Ed Admission (Communication) (01/05/22 10:19) (ROSE ORDONEZ MD) Medications Given in ED (ROSE ORDONEZ MD) Vital Signs/I&O 01/05/22 01/05/22 01/05/22 01/05/22 04:57 04:57 05:00 07:48 Temp 35.4 36.6 Pulse 72 87 Resp 16 18 B/P (MAP) 132/77 (95) 142/89 Pulse Ox 98 100 O2 Delivery Room Air Room Air Nasal Cannula Nasal Cannula O2 Flow Rate 2.00 2.00 01/05/22 01/05/22 09:12 09:14 Pulse 80 Resp 18 B/P (MAP) 131/78 Pulse Ox 95 O2 Delivery Room Air Room Air (ROSE ORDONEZ MD) Progress Progress Note : Progress Note GIVEN IV FLUIDS AND REGLAN BP UP TO 140'S SYSTOLIC NAUSEA RESOLVED CARE TURNED OVER TO DR. ORDONEZ AT SHIFT CHANGE, ALL RESULTS PENDING AT THIS TIME (JOHNIE HAND DO) Progress Note #1: Time: 08:22 Progress Note Care of this patient was assumed from Dr. Hand at shift change. D-dimer was elevated and CT angio of the chest with not angio abdomen and pelvis study had been ordered and was pending at checkout. CT has now been resulted. There is no evidence of PE or pneumonia. However, there is a significant chest mass. Patient's was concerned about headache and altered mental status as well. Apparently he grabbed his head 2 or 3 days ago and said he did not feel right and did not like the feeling. She seemed to believe he had a severe headache at the time. Patient does not add any history to this and cannot really recall the situation. Progress Note #2: Time: 10:[address] reports were reviewed. A CT of the head was unremarkable. I discussed results with the patient and he seems a bit more alert now. I again addressed the report of chest pain. Patient insists that he never had any true chest pain, only a sensation of uneasiness in the chest. His discomfort was more so in the abdomen and associated with diarrhea. I also informed him of the positive urine drug screen. He is adamant that he has not used marijuana in a long time and has not used methamphetamine. Case was discussed with Dr. Fuller who accepts admission for observation. Patient desires to have a full CODE STATUS, although he is a bit hesitant about a ventilator and does not want long- term ventilation support. Progress Note #3: Time: 11:03 Progress Note Nursing staff reported hives on patient's chest. Benadryl 12.5 mg is being given by IV route. No other new symptoms. (ROSE ORDONEZ MD) Initial ECG Impression Date: Jan 05, 2022 Initial ECG Impression Time: 05:00 Initial ECG Rate: 71 Initial ECG Rhythm: Normal Sinus (JOHNIE HAND DO) Diagnostic Imaging Comments CXR--RLL INFILTRATE, PENDING RADIOLOGIST REVIEW Reviewed: Reviewed by Me (JOHNIE HAND DO) Diagonstic Imaging: CT Plain Films/CT/US/NM/MRI: head Comments CT head viewed by me and report reviewed. See report below: NAME: LEXY SMITH [facility] REC#: [id number] PT STATUS: REG ER : 1965 PHYSICIAN: ROSE ORDONEZ MD ADMIT DATE: 01/05/22/ER Draft Date of Exam:01/05/22 CT HEAD WO PROCEDURE: CT head without contrast. TECHNIQUE: Multiple contiguous axial images were obtained through the brain without the use of intravenous contrast. Auto Exposure Controls were utilized during the CT exam to meet ALARA standards for radiation dose reduction. INDICATION: Altered mental status, history of lung cancer COMPARISONS: None FINDINGS: Midline structures are not displaced. Lateral, 3rd and 4th ventricles are normal in size, shape and anatomic position. There is no mass, mass effect, hydrocephalus or hemorrhage demonstrated on this noncontrast CT. Some residual contrast over it is noted from the previous CT chest. There are no abnormal extra-axial fluid collections or hemorrhage. Basilar cisterns appear normal. Sinuses show ethmoid, sphenoid and left maxillary sinus disease. Orbits and mastoid air cells are unremarkable. Bone windows show no overall gross abnormalities. IMPRESSION: 1. Essentially unremarkable nonenhanced CT head. Some residual contrast from the CT chest however is noted. No definite mass is identified however if clinically warranted, a pre and postcontrast MRI with 3-D SPGR imaging would be of further value. 2. Chronic sinus disease as described above. Dictated on workstation # [id number] Dict: 01/05/22 0850 Trans: 01/05/22 0854 CV [id number] Interpreted by: LUMA SCOTT MD Diagonstic Imaging: CT Plain Films/CT/US/NM/MRI: chest, abdomen, pelvis Comments CT report reviewed. See report below: NAME: LEXY SMITH [facility] REC#: [id number] PT STATUS: REG ER : 1965 PHYSICIAN: JOHNIE HAND DO ADMIT DATE: 01/05/22/ER Signed Date of Exam:01/05/22 CT KAREY CHEST/NOANG ABD-PELV W INDICATION: Chest pain. Dyspnea. Elevated D-dimer. Nausea and vomiting. CTA chest, abdomen and pelvis Thin axial sections through the chest, abdomen and pelvis are obtained following intravenous contrast bolus. Multiplanar MIP images were reconstructed and reviewed. All CT scans use one or more of the following dose optimizing techniques: automated exposure control, MA and/or KvP adjustment based on patient size and exam type or iterative reconstruction. COMPARISON: 07/25/2018. CTA chest: No evidence of pulmonary emboli to the subsegmental pulmonary arteries. The heart size is within normal limits. No pericardial effusion is present. Pathologically enlarged lymph node is seen in the right hilar region measuring 5.3 x 3.0 cm. Subsegmental atelectasis is seen in the right middle lobe. No focal consolidation. No central endobronchial obstructing lesion. No pleural effusion or pneumothorax. No acute osseous abnormalities. CT abdomen and pelvis: The liver, spleen, pancreas, adrenal glands, and kidneys have a normal appearance. The gallbladder is nondistended. The portal vein is patent. There is no pathologically enlarged mesenteric or retroperitoneal adenopathy. There is diffuse bowel wall thickening and hyperemia predominantly involving the small bowel. Normal appendix is seen in the right lower quadrant. A small amount of liquid stool seen in the colon. Diverticuli are seen in the descending and sigmoid colon. A small amount of free fluid is present in the abdomen and pelvis. No evidence of free air. No acute osseous abnormalities in the abdomen and pelvis. There is calcified aortic and iliac atherosclerotic plaque without aneurysm. The urinary bladder is decompressed. There is no free air, loculated collection, or adenopathy in the pelvis. IMPRESSION: 1. Diffuse bowel wall thickening and hyperemia, most suggestive of enteritis/ileus. Additional diarrheal illness is seen in the colon. There is a small amount of associated free fluid without evidence of free air. Recommend continued close followup. 2. No pulmonary emboli to the subsegmental pulmonary arteries. 3. Mass in the right hilar region measuring 5.3 x 3.0 cm. Consider PET/CT to further evaluate. Dictated by: Dictated on workstation # [id number] Dict: 01/05/2219 Trans: 01/05/22 0735 CV [id number] Interpreted by: IVAN GRAHAM DO Electronically signed by: IVAN GRAHAM DO 01/05/22 0735 (ROSE ORDONEZ MD) Departure Communication (Admissions) Time/Spoke to Admitting Phy: 10:19 Dr. Fuller (ROSE ORDONEZ MD) Impression Primary Impression: Chest pain Qualified Codes: R07.9 - Chest pain, unspecified Additional Impressions: RLL pneumonia Qualified Codes: J18.9 - Pneumonia, unspecified organism Chest mass Altered mental status Qualified Codes: R41.82 - Altered mental status, unspecified Diarrhea Qualified Codes: R19.7 - Diarrhea, unspecified Positive urine drug screen Disposition: ADMITTED INPATIENT Condition: Stable Admissions Decision to Admit Reason: Admit from ER (General) Decision to Admit/Date: Jan 05, 2022 Time/Decision to Admit Time: 10:19 (ROSE ORDONEZ MD) Departure-Patient Inst. Referrals: RADHA MOJICA DO (PCP/Family) Primary Care Physician Scripts Carvedilol (Coreg) 6.25 Mg Tablet 6.25 MG PO BID for 30 Days, #60 TAB Prov: MANISHA FULLER MD 01/05/22 JOHNIE HAND DO Jan 05, 2022 05:14 ROSE ORDONEZ MD Jan 05, 2022 08:25
[2022-01-05] MEDS ORDERED: LACTATED RINGERS 1,000 ML IV ONE (05:15)
[2022-01-05 05:32] LABS: BASOPHILS % (AUTO) 0 % (0-10); EOSINOPHILS # (AUTO) 0.1 10^3/uL (0.0-0.3); EOSINOPHILS % (AUTO) 0 % (0-10); HEMATOCRIT 56 % (40-54); HEMOGLOBIN 18.3 g/dL (13.3-17.7); LYMPHOCYTES # (AUTO) 2.5 10^3/uL (1.0-4.0); LYMPHOCYTES % (AUTO) 21 % (12-44); MEAN CORPUSCULAR HEMOGLOBIN 30 pg (25-34); MEAN CORPUSCULAR HGB CONC 33 g/dL (32-36); MEAN CORPUSCULAR VOLUME 90 fL (80-99); MEAN PLATELET VOLUME 9.7 fL (9.0-12.2); MONOCYTES # (AUTO) 0.7 10^3/uL (0.0-1.0); MONOCYTES % (AUTO) 6 % (0-12); NEUTROPHILS # (AUTO) 8.8 10^3/uL (1.8-7.8); NEUTROPHILS % (AUTO) 73 % (42-75); PLATELET COUNT 433 10^3/uL (130-400); WHITE BLOOD COUNT 12.1 10^3/uL (4.3-11.0)
[2022-01-05 05:45] LABS: PROTHROMBIN TIME PATIENT 13.6 SEC (12.2-14.7)
[2022-01-05 05:54] LABS: ALBUMIN 3.7 GM/DL (3.2-4.5); BILIRUBIN,TOTAL 0.4 MG/DL (0.1-1.0); CALCIUM 8.5 MG/DL (8.5-10.1); CREATININE SERUM 1.49 MG/DL (0.60-1.30); MAGNESIUM 2.1 MG/DL (1.6-2.4); POTASSIUM 3.7 MMOL/L (3.6-5.0); TOTAL PROTEIN 6.9 GM/DL (6.4-8.2)
[2022-01-05] MEDS ORDERED: cefTRIAXone 1 GM PRE-MIX 50 ML IV ONE (06:00)
[2022-01-05] MEDS ORDERED: AZITHROMYCIN INJECTION 500 MG in NS (IVPB) 250 ML IV ONE (06:00)
[2022-01-05 06:02] LABS: CREATINE KINASE MB 2.8 NG/ML (<6.6)
[2022-01-05] MEDS ORDERED: NS IV 1000 ML 1,000 ML IV SCH (06:30)
[2022-01-05] MEDS ORDERED: IOHEXOL 350 MG/ML 100 ML (OMNIPAQUE 350) VIAL IV ONE (07:15)
[2022-01-05] MEDS ORDERED: NS 100 ML (IVPB) BAG IV ONE (07:15)
[2022-01-05] MEDS ORDERED: CATHETER FLUSH 10 ML SYR IV PRN (07:15)
--- NOTE | 2022-01-05 07:31 | Diagnostic Imaging Report ---
INDICATION: Chest pain. Dyspnea. Elevated D-dimer. Nausea and vomiting. CTA chest, abdomen and pelvis Thin axial sections through the chest, abdomen and pelvis are obtained following intravenous contrast bolus. Multiplanar MIP images were reconstructed and reviewed. All CT scans use one or more of the following dose optimizing techniques: automated exposure control, MA and/or KvP adjustment based on patient size and exam type or iterative reconstruction. COMPARISON: 07/25/2018. CTA chest: No evidence of pulmonary emboli to the subsegmental pulmonary arteries. The heart size is within normal limits. No pericardial effusion is present. Pathologically enlarged lymph node is seen in the right hilar region measuring 5.3 x 3.0 cm. Subsegmental atelectasis is seen in the right middle lobe. No focal consolidation. No central endobronchial obstructing lesion. No pleural effusion or pneumothorax. No acute osseous abnormalities. CT abdomen and pelvis: The liver, spleen, pancreas, adrenal glands, and kidneys have a normal appearance. The gallbladder is nondistended. The portal vein is patent. There is no pathologically enlarged mesenteric or retroperitoneal adenopathy. There is diffuse bowel wall thickening and hyperemia predominantly involving the small bowel. Normal appendix is seen in the right lower quadrant. A small amount of liquid stool seen in the colon. Diverticuli are seen in the descending and sigmoid colon. A small amount of free fluid is present in the abdomen and pelvis. No evidence of free air. No acute osseous abnormalities in the abdomen and pelvis. There is calcified aortic and iliac atherosclerotic plaque without aneurysm. The urinary bladder is decompressed. There is no free air, loculated collection, or adenopathy in the pelvis. IMPRESSION: 1. Diffuse bowel wall thickening and hyperemia, most suggestive of enteritis/ileus. Additional diarrheal illness is seen in the colon. There is a small amount of associated free fluid without evidence of free air. Recommend continued close followup. 2. No pulmonary emboli to the subsegmental pulmonary arteries. 3. Mass in the right hilar region measuring 5.3 x 3.0 cm. Consider PET/CT to further evaluate. Dictated by: Dictated on workstation # [id number]
[2022-01-05 07:37] LABS: BILIRUBIN,URINE NEGATIVE (NEGATIVE); CLARITY,URINE CLEAR; COLOR,URINE YELLOW; GLUCOSE, URINE (UA) NEGATIVE (NEGATIVE); KETONES,URINE NEGATIVE (NEGATIVE); LEUKOCYTE ESTERASE ,URINE NEGATIVE (NEGATIVE); NITRITE,URINE NEGATIVE (NEGATIVE); PH,URINE 5.5 (5-9); PROTEIN,URINE 1+ (NEGATIVE)
[2022-01-05 07:54] LABS: AMORPHOUS SEDIMENT,UR RARE AMOR URATES /LPF; BACTERIA,URINE TRACE /HPF; SQUAMOUS EPITHELIAL CELL,UR RARE /HPF
[2022-01-05 07:57] LABS: AMPHETAMINE SCREEN, URINE POSITIVE (NEGATIVE); BARBITURATE SCREEN URINE NEGATIVE (NEGATIVE); BENZODIAZEPINES SCREEN URINE NEGATIVE (NEGATIVE); CANNABINOID SCREEN, URINE POSITIVE (NEGATIVE); COCAINE SCREEN URINE NEGATIVE (NEGATIVE); METHADONE STAT NEGATIVE (NEGATIVE); OPIATE SCREEN URINE NEGATIVE (NEGATIVE); OXYCODONE STAT NEGATIVE (NEGATIVE); PROPOXYPHENE STAT NEGATIVE (NEGATIVE); TRICYCLIC ANTIDEPRESSANTS SCRE NEGATIVE (NEGATIVE)
--- NOTE | 2022-01-05 08:13 | Diagnostic Imaging Report ---
INDICATION: Chest pain. TECHNIQUE: Single view chest 5:31 AM. CORRELATION STUDY: 05/20/2021 FINDINGS: The heart size, mediastinal configuration and pulmonary vascularity are within normal limits. Minimal atelectasis or less likely infiltrate in the right lung base. Remaining lung coburn otherwise clear. IMPRESSION: 1. Question minimal atelectasis or infiltrate right lung base. Dictated by: Dictated on workstation # [id number]
--- NOTE | 2022-01-05 08:54 | Diagnostic Imaging Report ---
PROCEDURE: CT head without contrast. TECHNIQUE: Multiple contiguous axial images were obtained through the brain without the use of intravenous contrast. Auto Exposure Controls were utilized during the CT exam to meet ALARA standards for radiation dose reduction. INDICATION: Altered mental status, history of lung cancer COMPARISONS: None FINDINGS: Midline structures are not displaced. Lateral, 3rd and 4th ventricles are normal in size, shape and anatomic position. There is no mass, mass effect, hydrocephalus or hemorrhage demonstrated on this noncontrast CT. Some residual contrast over it is noted from the previous CT chest. There are no abnormal extra-axial fluid collections or hemorrhage. Basilar cisterns appear normal. Sinuses show ethmoid, sphenoid and left maxillary sinus disease. Orbits and mastoid air cells are unremarkable. Bone windows show no overall gross abnormalities. IMPRESSION: 1. Essentially unremarkable nonenhanced CT head. Some residual contrast from the CT chest however is noted. No definite mass is identified however if clinically warranted, a pre and postcontrast MRI with 3-D SPGR imaging would be of further value. 2. Chronic sinus disease as described above. Dictated by: Dictated on workstation # [id number]
[2022-01-05] MEDS ORDERED: diphenhydrAMINE 50 MG/ML INJ (BENADRYL) IVP ONE (11:15)
[2022-01-05] MEDS ORDERED: MELATONIN 3 MG TABLET PO PRN (12:30)
[2022-01-05] MEDS ORDERED: CALCIUM CARBONATE 500 MG (TUMS) TAB.CHEW PO PRN (12:30)
[2022-01-05] MEDS ORDERED: ONDANSETRON 4 MG/2 ML (SDV) Z0FRAN IV PRN (12:30)
[2022-01-05] MEDS ORDERED: polyethylene glycoL POWDER 17 GM (MIRALAX) PACK PO PRN (12:30)
[2022-01-05] MEDS ORDERED: ACETAMINOPHEN 325 MG TABLET PO PRN (12:30)
[2022-01-05 13:21] VITALS: BP 144/84
--- NOTE | 2022-01-05 13:59 | History & Physical-Hospitalist ---
History of Present Illness HPI/Chief Complaint Patient is a 56-year-old male with past medical history of coronary artery disease who presented with chest pain and AMS. He complains of a cough and shortness of breath and believed he had pneumonia. He does have a history of coronary artery disease though and was also worried about another heart attack. He reports compliance with his aspirin and Plavix at home. He was somewhat confused as well so CT head was done to rule out stroke. He also had a CTA of his chest to rule out PE which revealed a 5 cm hilar mass and infiltrate. He was admitted for further management. By the time I saw him in the afternoon he was feeling much better and had no further pain. His mentation had improved to baseline. He did have methamphetamines in his system per his urine drug screen but he adamantly denied any illicit drug use. Source: patient Date Seen 01/05/22 Time Seen by a Provider: 13:57 Attending Physician Salima Nuñez MD PCP Admitting Physician: Zainab Schmid MD Attending Physician: Zainab Schmid MD Referring Physician Date of Admission Jan 05, 2022 at 10:20 Home Medications & Allergies Home Medications Reviewed patient Home Medication Reconciliation performed by pharmacy medication reconciliations ophthalmology technician and/or nursing. Patients Allergies have been reviewed. Allergies Allergies Coded Allergies codeine (Verified Allergy, Unknown, 05/19/21) Past Jppjdel-Hnrbmz-Lwzbae Hx Patient Social History Marrital Status: Tobacco Use?: Yes Tobacco type used: Cigarettes Smoking Status: Current Everyday Smoker Substance use?: No Alcohol Use?: No Pt feels they are or have been: No Seasonal Allergies Seasonal Allergies: No Current Status Primary Language: Yemeni Preferred Spoken Language: Yemeni Past Medical History Surgeries: Cardiac, Coronary Stent Asthma, COPD Heart Attack TIA Blood Disorders: No Family Medical History Reviewed Nursing Family Hx No Pertinent Family Hx SOCIAL HISTORY: -SMOKES 1 PPD -DENIES ETOH -DENIES DRUG USE PAST SURGICAL HISTORY: -CARDIAC CATH WITH STENTS X 2 TO RCA AND LEFT CIRC 05/19/[address] LANZA Review of Systems Constitutional: No chills, No fever; malaise EENTM: no symptoms reported Respiratory: cough, short of breath Cardiovascular: chest pain; No edema; Hx of Intervention Gastrointestinal: No abdominal pain, No constipation, No nausea, No vomiting Genitourinary: no symptoms reported Musculoskeletal: no symptoms reported Skin: no symptoms reported Psychiatric/Neurological: No Symptoms Reported Physical Exam Physical Exam Vital Signs Vital Signs - First Documented 01/05/22 05:00 O2 Flow Rate 2.00 Capillary Refill : Less Than 3 Seconds Height, Weight, BMI Height: 5'10.00" Weight: 185lbs. 0oz. 83.497509xm; 28.57 BMI Method:Stated General Appearance: No Apparent Distress, WD/WN HEENT: PERRL/EOMI, Moist Mucous Membranes; No Scleral Icterus (L), No Scleral Icterus (R) Neck: Normal Inspection, Supple Respiratory: Lungs Clear, No Accessory Muscle Use, No Respiratory Distress Cardiovascular: Regular Rate, Rhythm, No Murmur, Normal Peripheral Pulses Gastrointestinal: Normal Bowel Sounds, Non Tender, Soft Extremity: Normal Capillary Refill, No Calf Tenderness, No Pedal Edema Neurologic/Psychiatric: Alert, Oriented x3, Normal Mood/Affect Results Results/Procedures Labs Laboratory Tests 01/05/22 05:07 01/06/22 05:24 01/06/22 05:25 Patient resulted labs reviewed. Imaging: Reviewed Imaging Report [facility] [place] [place] NAME: LEXY SMITH [facility] REC#: [id number] PT STATUS: REG ER : 1965 PHYSICIAN: JOHNIE BLANK DO ADMIT DATE: 01/05/22/ER Signed Date of Exam:01/05/22 CHEST 1 VIEW, AP/PA ONLY INDICATION: Chest pain. TECHNIQUE: Single view chest 5:31 AM. CORRELATION STUDY: 05/20/2021 FINDINGS: The heart size, mediastinal configuration and pulmonary vascularity are within normal limits. Minimal atelectasis or less likely infiltrate in the right lung base. Remaining lung coburn otherwise clear. IMPRESSION: 1. Question minimal atelectasis or infiltrate right lung base. Dictated by: Dictated on workstation # [id number] Dict: 01/05/22810 Trans: 01/05/22935 CVB [id number] Interpreted by: SHARRI DEL TORO DO Electronically signed by: SHARRI DEL TORO DO 01/05/22 0936 [facility], [place], [place] NAME: LEXY SMITH [facility] REC#: [id number] PT STATUS: REG ER : 1965 PHYSICIAN: JOHNIE BLANK DO ADMIT DATE: 01/05/22/ER Signed Date of Exam:01/05/22 CT KAREY CHEST/NOANG ABD-PELV W INDICATION: Chest pain. Dyspnea. Elevated D-dimer. Nausea and vomiting. CTA chest, abdomen and pelvis Thin axial sections through the chest, abdomen and pelvis are obtained following intravenous contrast bolus. Multiplanar MIP images were reconstructed and reviewed. All CT scans use one or more of the following dose optimizing techniques: automated exposure control, MA and/or KvP adjustment based on patient size and exam type or iterative reconstruction. COMPARISON: 07/25/2018. CTA chest: No evidence of pulmonary emboli to the subsegmental pulmonary arteries. The heart size is within normal limits. No pericardial effusion is present. Pathologically enlarged lymph node is seen in the right hilar region measuring 5.3 x 3.0 cm. Subsegmental atelectasis is seen in the right middle lobe. No focal consolidation. No central endobronchial obstructing lesion. No pleural effusion or pneumothorax. No acute osseous abnormalities. CT abdomen and pelvis: The liver, spleen, pancreas, adrenal glands, and kidneys have a normal appearance. The gallbladder is nondistended. The portal vein is patent. There is no pathologically enlarged mesenteric or retroperitoneal adenopathy. There is diffuse bowel wall thickening and hyperemia predominantly involving the small bowel. Normal appendix is seen in the right lower quadrant. A small amount of liquid stool seen in the colon. Diverticuli are seen in the descending and sigmoid colon. A small amount of free fluid is present in the abdomen and pelvis. No evidence of free air. No acute osseous abnormalities in the abdomen and pelvis. There is calcified aortic and iliac atherosclerotic plaque without aneurysm. The urinary bladder is decompressed. There is no free air, loculated collection, or adenopathy in the pelvis. IMPRESSION: 1. Diffuse bowel wall thickening and hyperemia, most suggestive of enteritis/ileus. Additional diarrheal illness is seen in the colon. There is a small amount of associated free fluid without evidence of free air. Recommend continued close followup. 2. No pulmonary emboli to the subsegmental pulmonary arteries. 3. Mass in the right hilar region measuring 5.3 x 3.0 cm. Consider PET/CT to further evaluate. Dictated by: Dictated on workstation # [id number] Dict: 01/05/22718 Trans: 01/05/22734 CV [id number] Interpreted by: IVAN GRAHAM DO Electronically signed by: IVAN GRAHAM DO 01/05/2235 [facility], [place] NAME: LEXY SMITH [facility] REC#: [id number] PT STATUS: REG ER : 1965 PHYSICIAN: ROSE ORDONEZ MD ADMIT DATE: 01/05/22/ER Draft Date of Exam:01/05/22 CT HEAD WO PROCEDURE: CT head without contrast. TECHNIQUE: Multiple contiguous axial images were obtained through the brain without the use of intravenous contrast. Auto Exposure Controls were utilized during the CT exam to meet ALARA standards for radiation dose reduction. INDICATION: Altered mental status, history of lung cancer COMPARISONS: None FINDINGS: Midline structures are not displaced. Lateral, 3rd and 4th ventricles are normal in size, shape and anatomic position. There is no mass, mass effect, hydrocephalus or hemorrhage demonstrated on this noncontrast CT. Some residual contrast over it is noted from the previous CT chest. There are no abnormal extra-axial fluid collections or hemorrhage. Basilar cisterns appear normal. Sinuses show ethmoid, sphenoid and left maxillary sinus disease. Orbits and mastoid air cells are unremarkable. Bone windows show no overall gross abnormalities. IMPRESSION: 1. Essentially unremarkable nonenhanced CT head. Some residual contrast from the CT chest however is noted. No definite mass is identified however if clinically warranted, a pre and postcontrast MRI with 3-D SPGR imaging would be of further value. 2. Chronic sinus disease as described above. Dictated on workstation # [id number] Dict: 01/05/22849 Trans: 01/05/22853 [facility] [id number] Interpreted by: LUMA SCOTT MD Electronically signed by: Assessment/Plan Admission Diagnosis chest pain Admission Status: Observation Assessment and Plan Chest pain CAD tobacco abuse HTN HLD Chest pain resolved History of GA in 04/2021 Maintains on Plavix and ASA and follows with Dr Lanza Troponin negative x2, trend CAP Received rocephin and azithro in the ER Not septic Continue IV abx AMS CT head negative UDS Positive for methamphetamines- most likely cause of AMS but patient denies use Mentation is normal as my exam Hilar mass Tobacco abuse Discussed importance of follow up with PCP for this Will likely need biopsy/PET scan Diagnosis/Problems Diagnosis/Problems (1) Chest pain Status: Acute Qualifiers: Chest pain type: unspecified Qualified Codes: R07.9 - Chest pain, unspecified (2) Positive urine drug screen Status: Acute (3) Altered mental status Status: Acute Qualifiers: Altered mental status type: unspecified Qualified Codes: R41.82 - Altered mental status, unspecified (4) Chest mass Status: Acute (5) Primary hypertension (6) Mixed hyperlipidemia (7) Chronic obstructive pulmonary disease Clinical Quality Measures AMI/AHF: ASA po Prior to arrival: Yes (324MG PO EN ROUTE VIA EMS) Copy Copies To 1: SALIMA NUÑEZ MD, KATELYN M MD Jan 05, 2022 13:59
--- NOTE | 2022-01-05 14:26 | Physical Therapy Progress Note ---
Therapy Progress Note Patient is up independently and showering. No skilled PT indicated. AIDEN LI PT Jan 05, 2022 14:25
[2022-01-05] MEDS: NS IV 1000 ML 1,000 ML IV SCH ×2 (14:51→19:24)
[2022-01-05 15:44] VITALS: BP 158/95
[2022-01-05] MEDS ORDERED: CARV6.25 PO (15:44)
[2022-01-05 19:16] VITALS: BP 124/74
[2022-01-05] MEDS ORDERED: ROSUVASTATIN 20 MG (CRESTOR) TABLET PO SCH (21:00)
[2022-01-06] VITALS: BP 162/81
[2022-01-06 04:00] VITALS: BP 128/59
[2022-01-06] MEDS ORDERED: cefTRIAXone 1 GM PRE-MIX 50 ML IV SCH (06:00)
[2022-01-06 06:05] LABS: HEMATOCRIT 40 % (40-54); HEMOGLOBIN 13.4 g/dL (13.3-17.7); MEAN CORPUSCULAR HGB CONC 33 g/dL (32-36); MEAN CORPUSCULAR VOLUME 89 fL (80-99); MEAN PLATELET VOLUME 10.1 fL (9.0-12.2); PLATELET COUNT 330 10^3/uL (130-400); WHITE BLOOD COUNT 9.4 10^3/uL (4.3-11.0)
[2022-01-06 06:12] LABS: MEAN CORPUSCULAR HEMOGLOBIN 29 pg (25-34)
[2022-01-06 06:25] LABS: CALCIUM 7.7 MG/DL (8.5-10.1); CREATININE SERUM 1.2 MG/DL (0.60-1.30); POTASSIUM 3.6 MMOL/L (3.6-5.0)
[2022-01-06] MEDS: NS IV 1000 ML 1,000 ML IV SCH ×2 (06:48→12:41)
[2022-01-06 07:49] VITALS: BP 155/79
[2022-01-06] MEDS ORDERED: AZITHROMYCIN INJECTION 500 MG in NS (IVPB) 250 ML IV SCH (09:00)
[2022-01-06] MEDS ORDERED: ASPIRIN E.C. 81 MG (ECOTRIN) TAB PO SCH (09:00)
[2022-01-06] MEDS ORDERED: CLOPIDOGREL 75 MG (PLAVIX) TABLET PO SCH (09:00)
--- NOTE | 2022-01-06 10:19 | Consultation-Cardiology ---
HPI-Cardiology Cardiology Consultation Date of Consultation 01/06/22 Date of Admission Time Seen by Provider: 10:16 Indication: Chest pain HPI 56-year-old gentleman with history of coronary artery disease, hypertension and hyperlipidemia. Not sure why he is in the hospital, he was admitted with an acute episode of chest pain in the retrosternal area associated with confusion and change in mental status. EKG and cardiac enzymes did not show any acute abnormality, on evaluation this morning he was feeling well, denied any active chest pain. Home Medications & Allergies Allergies: Coded Allergies: codeine (Verified Allergy, Unknown, 05/19/21) Home Medication List Reviewed: Yes TXE-Bflcib-Aztuke Hx Patient Social History Smoking Status: Current Everyday Smoker Type Used: Cigarettes 2nd Hand Smoke Exposure: Yes Recent Hopitalizations: No Have you traveled recently?: No Alcohol Use?: No Past Medical History Discussed below Family Medical History Family Medical Hx Noncontributory Review of Systems-General Review of Systems Constitutional: see HPI; No chills, No fever; malaise EENTM: see HPI, no symptoms reported Respiratory: see HPI, cough, short of breath Cardiovascular: see HPI, chest pain; No edema; Hx of Intervention; No palpitations, No syncope, No vascular heart diseas, No other Gastrointestinal: see HPI; No abdominal pain, No constipation, No nausea, No vo miting Genitourinary: no symptoms reported Musculoskeletal: no symptoms reported, see HPI Skin: no symptoms reported, see HPI Psychiatric/Neurological: No Symptoms Reported, See HPI Reviewed Test Results Reviewed Test Results Lab Laboratory Tests Test 01/06/22 05:24 01/06/22 05:25 Range/Units Sodium Level 138 135-145 MMOL/L Potassium Level 3.6 3.6-5.0 MMOL/L Chloride Level 114 H 98-107 MMOL/L Carbon Dioxide Level 14 L 21-32 MMOL/L Anion Gap 10 5-14 MMOL/L Blood Urea Nitrogen 13 7-18 MG/DL Creatinine 1.20 0.60-1.30 MG/DL Estimat Glomerular Filtration Rate 70 BUN/Creatinine Ratio 11 Glucose Level 110 H 70-105 MG/DL Calcium Level 7.7 L 8.5-10.1 MG/DL White Blood Count 9.4 4.3-11.0 10^3/uL Red Blood Count 4.55 4.30-5.52 10^6/uL Hemoglobin 13.4 # 13.3-17.7 g/dL Hematocrit 40 40-54 % Mean Corpuscular Volume 89 80-99 fL Mean Corpuscular Hemoglobin 29 25-34 pg Mean Corpuscular Hemoglobin Concent 33 32-36 g/dL Red Cell Distribution Width 13.7 10.0-14.5 % Platelet Count 330 130-400 10^3/uL Mean Platelet Volume 10.1 9.0-12.2 fL Physical Exam Physical Exam Vital Signs Vital Signs - First Documented 01/05/22 05:00 O2 Flow Rate 2.00 Capillary Refill : Less Than 3 Seconds Height, Weight, BMI Height: 5'10.00" Weight: 185lbs. 0oz. 83.969799ns; 27.98 BMI Method:Stated General Appearance: No Apparent Distress, WD/WN HEENT: PERRL/EOMI, Moist Mucous Membranes; No Scleral Icterus (L), No Scleral Icterus (R) Neck: Normal Inspection, Supple Respiratory: Lungs Clear, No Accessory Muscle Use, No Respiratory Distress Cardiovascular: Regular Rate, Rhythm, No Murmur, Normal Peripheral Pulses Gastrointestinal: Normal Bowel Sounds, Non Tender, Soft Extremity: Normal Capillary Refill, No Calf Tenderness, No Pedal Edema Neurologic/Psychiatric: Alert, Oriented x3, Normal Mood/Affect Skin: Cool, Diaphoresis, Mottled, Pallor, Tattoos/Piercings (TATTOOS) A/P-Cardiology Admission Diagnosis Chest pain Coronary artery disease Hypertension Hyperlipidemia. Assessment/Plan Chest pain, nonspecific etiology, resolved EKG and cardiac enzymes are normal did not show any acute abnormality Will consider stress test as an outpatient. Coronary artery disease, status post ST elevation myocardial infarction involving the inferior wall in April 2021, treated with 2 drug-eluting stents in the distal right coronary artery, he also had 1 drug-eluting stent in the circumflex artery. He is on aspirin and Plavix. Patient reported compliance with medication. Continue to monitor Change in mental status, confusion Patient denied any illicit drug use but his urine drug screen tested positive for amphetamine and methamphetamine and cannabinoids. Educated on avoiding illicit drugs Hypertension, restart home medication monitor blood pressure Hyperlipidemia, continue on statin Tobaccoism, educated on smoking cessation COPD. Okay for discharge from cardiology standpoint and follow-up as an outpatient with Dr. Lanza Clinical Quality Measures AMI/AHF: ASA po Prior to arrival: Yes (324MG PO EN ROUTE VIA EMS) KAREN VELIZ MD Jan 06, 2022 10:19
--- NOTE | 2022-01-06 10:55 | Discharge Inst-Simple/Standard ---
Discharge Inst-Standard Discharge Medications New, Converted or Re-Newed RX: Transmitted to Pharmacy Patient Instructions/Follow Up Plan of Care/Instructions/FU: Please continue to take your medications as written. Please follow up with your primary care doctor to follow up this hospital stay. It is important to follow-up on the mass seen in your chest on the CAT scan with your primary care doctor. Activity as Tolerated: Yes Discharge Diet: Cardiac Diet Return to The Hospital For: Chest pain, shortness of breath, fever, weakness, if you feel you are getting worse. MANISHA FULLER MD Jan 06, 2022 10:55
[2022-01-06] MEDS ORDERED: CEPH500T PO (11:07)
[2022-01-06] MEDS ORDERED: AZIT250T12 PO (11:07)
--- NOTE | 2022-01-06 11:11 | Discharge Summary ---
Diagnosis/Chief Complaint Date of Admission Jan 05, 2022 at 10:20 Date of Discharge Discharge Date: Jan 06, 2022 Admission Diagnosis chest pain Primary Care Juanjose Connor DO Discharge Diagnosis (1) Chest pain Status: Acute (2) Positive urine drug screen Status: Acute (3) Altered mental status Status: Acute (4) Chest mass Status: Acute (5) Primary hypertension (6) Mixed hyperlipidemia (7) Chronic obstructive pulmonary disease Discharge Summary Discharge Physical Exam Allergies: Coded Allergies: codeine (Verified Allergy, Unknown, 05/19/21) Vitals & I&Os Vital Signs Date Time Temp Pulse Resp B/P (MAP) Pulse Ox O2 Delivery O2 Flow Rate FiO2 01/06/22 07:49 37.1 82 18 155/79 (104) 97 Room Air 01/05/22 07:48 2.00 General Appearance: No Apparent Distress, WD/WN Cardiovascular: Regular Rate, Rhythm, No Murmur Gastrointestinal: Normal Bowel Sounds, Soft Neurologic/Psychiatric: Alert, Oriented x3 Hospital Course Patient was admitted to the hospital secondary to chest pain likely due to right-sided pneumonia. He was treated with Rocephin and azithromycin for community acquired pneumonia coverage. His symptoms resolved. Due to his chest pain a CTA was done to evaluate for PE and that was negative for pulmonary embolism but did reveal a large hilar mass. He was informed of these findings by both the ER and myself. He was advised to follow-up with his primary care doctor for further work-up of this mass and the high likelihood for cancer given his smoking history. Cardiology saw patient and troponins were trended and were negative. He was discharged home on oral antibiotics to follow-up with his primary care physician, Dr. Oconnell. Labs (last 24 hrs) Laboratory Tests 01/06/22 05:24: Sodium Level 138, Potassium Level 3.6, Chloride Level 114H, Carbon Dioxide Level 14L, Anion Gap 10, Blood Urea Nitrogen 13, Creatinine 1.20, Estimat Glomerular Filtration Rate 70, BUN/Creatinine Ratio 11, Glucose Level 110H, Calcium Level 7.7L 01/06/22 05:25: White Blood Count 9.4, Red Blood Count 4.55, Hemoglobin 13.4#, Hematocrit 40, Mean Corpuscular Volume 89, Mean Corpuscular Hemoglobin 29, Mean Corpuscular Hemoglobin Concent 33, Red Cell Distribution Width 13.7, Platelet Count 330, Mean Platelet Volume 10.1 Patient resulted labs reviewed. Pending Labs Laboratory Tests 01/06/22 05:24: Sodium Level 138, Potassium Level 3.6, Chloride Level 114, Carbon Dioxide Level 14, Anion Gap 10, Blood Urea Nitrogen 13, Creatinine 1.20, Estimat Glomerular Filtration Rate 70, BUN/Creatinine Ratio 11, Glucose Level 110, Calcium Level 7.7 01/06/22 05:25: White Blood Count 9.4, Red Blood Count 4.55, Hemoglobin 13.4, Hematocrit 40, Mean Corpuscular Volume 89, Mean Corpuscular Hemoglobin 29, Mean Corpuscular Hemoglobin Concent 33, Red Cell Distribution Width 13.7, Platelet Count 330, Mean Platelet Volume 10.1 Imaging: Reviewed Imaging Report Discussion & Recommendations Discharge Planning: >30 minutes discharge planning Discharge Home Medications: Active Scripts Active Coreg (Carvedilol) 6.25 Mg Tablet 6.25 Mg PO BID 30 Days Clopidogrel (Clopidogrel Bisulfate) 75 Mg Tablet 75 Mg PO DAILY Aspirin EC (Aspirin) 81 Mg Tablet.dr 81 Mg PO DAILY Rosuvastatin Calcium 20 Mg Tablet 20 Mg PO HS Instructions to patient/family Please see electronic discharge instructions given to patient. Clinical Quality Measures AMI/AHF: ASA po Prior to arrival: Yes (324MG PO EN ROUTE VIA EMS) Copy Copies To 1: SALIMA OCONNELL MD Problem Qualifiers (1) Chest pain: Chest pain type: unspecified Qualified Codes: R07.9 - Chest pain, unspecified (2) Altered mental status: Altered mental status type: unspecified Qualified Codes: R41.82 - Altered mental status, unspecified MANISHA FULLER MD Jan 06, 2022 11:11
[2022-01-06 11:35] VITALS: BP 156/76
== END 2022-01-06 11:08 | disposition home or self-care (01) ==
LOC: EDUNIT# 04:51 → ER 04:52 → 4TH 10:20 → UNDOADMOB 10:20 → 4TH 13:10 → UNDODISOB 01-06 12:30
PROVIDERS: ADMIT Family Medicine; ATTEND Family Medicine
DX: R07.9 Chest pain, unspecified (principal); F17.210 Nicotine dependence, cigarettes, uncomplicated; I10 Essential (primary) hypertension; J44.9 Chronic obstructive pulmonary disease, unspecified; I25.10 Atherosclerotic heart disease of native coronary artery without angina pectoris; Z79.82 Long term (current) use of aspirin; E78.2 Mixed hyperlipidemia; Z79.899 Other long term (current) drug therapy
CPT/HCPCS: 70450; 71045; 71275; 74177; 80048; 80053; 80306; 81000; 82150; 82550; 82553; 83605; 83690; 83735; 83874; 83880; 84145; 84484; 85025; 85027; 85379; 85610; 85652; 85730; 86141; 87040; 87088; 87636; 93005; 93041; 96376; 99284; G0480; 36415; 80320; G0378

== ENCOUNTER 2022-06-20 10:11 | Emergency (ER) | payer SELFPAY ==
[~2022-06-20 10:11] MED LIST changes: +ALBU6.7H13 INH; -ALBU6.7H8 INH; +AZIT250T12 PO; +CARV6.25 PO; +CEPH500T PO
[2022-06-20] MEDS ORDERED: morphine INJ 10 MG/ML 1ML (SYR OR VIAL) IVP STA (10:19)
[2022-06-20 10:26] LABS: BASOPHILS % (AUTO) 0 % (0-10); EOSINOPHILS # (AUTO) 0.3 10^3/uL (0.0-0.3); EOSINOPHILS % (AUTO) 2 % (0-10); HEMATOCRIT 38 % (40-54); HEMOGLOBIN 12.6 g/dL (13.3-17.7); LYMPHOCYTES # (AUTO) 2.3 10^3/uL (1.0-4.0); LYMPHOCYTES % (AUTO) 13 % (12-44); MEAN CORPUSCULAR HEMOGLOBIN 29 pg (25-34); MEAN CORPUSCULAR HGB CONC 33 g/dL (32-36); MEAN CORPUSCULAR VOLUME 86 fL (80-99); MEAN PLATELET VOLUME 9.3 fL (9.0-12.2); MONOCYTES # (AUTO) 1.4 10^3/uL (0.0-1.0); MONOCYTES % (AUTO) 8 % (0-12); NEUTROPHILS # (AUTO) 13.1 10^3/uL (1.8-7.8); NEUTROPHILS % (AUTO) 76 % (42-75); PLATELET COUNT 455 10^3/uL (130-400); WHITE BLOOD COUNT 17.3 10^3/uL (4.3-11.0)
--- NOTE | 2022-06-20 10:38 | ED General ---
General Chief Complaint: Chest Pain Stated Complaint: SOB Source of Information: Patient Exam Limitations: No Limitations History of Present Illness Date Seen by Provider: Jun 20, 2022 Time Seen by Provider: 10:15 Initial Comments 56-year-old male presents to the emergency department via private vehicle for right-sided chest wall pain. He states he fell from ground-level after getting short of breath about a week ago and has had pain in his right-sided ribs, upper abdomen since that time. He was afraid at the time of his fall with shortness of breath that he may have "had another heart attack." He tells me since 3 stents within the last 1 year or so. He has not been checked out since that time. Over the last 3 days his right-sided chest pain has been severe. He denies fevers or chills. No nausea or vomiting. Allergies and Home Medications Allergies Coded Allergies: codeine (Verified Allergy, Unknown, 05/19/21) Patient Home Medication List Home Medication List Reviewed: Yes Aspirin (Aspirin EC) 81 Mg Tablet.dr, 81 MG PO DAILY Prescribed by: BRENTON JORDAN JR, MD on 05/20/211905 Azithromycin (Azithromycin) 250 Mg Tablet, 250 MG PO DAILY Prescribed by: MANISHA FULLER on 01/06/22 1107 Carvedilol (Coreg) 6.25 Mg Tablet, 6.25 MG PO BID Prescribed by: YASH DAVID on 01/05/22 1544 Cephalexin (Cephalexin) 500 Mg Tablet, 500 MG PO BID Prescribed by: MANISHA FULLER on 01/06/22 1107 Clopidogrel Bisulfate (Clopidogrel) 75 Mg Tablet, 75 MG PO DAILY Prescribed by: BRENTON JORDAN JR, MD on 05/20/211905 Rosuvastatin Calcium (Rosuvastatin Calcium) 20 Mg Tablet, 20 MG PO HS Prescribed by: BRENTON JORDAN JR, MD on 05/20/211905 Review of Systems Review of Systems Constitutional: no symptoms reported EENTM: no symptoms reported Respiratory: short of breath Cardiovascular: chest pain Gastrointestinal: RUQ Genitourinary: no symptoms reported Musculoskeletal: no symptoms reported Skin: no symptoms reported Psychiatric/Neurological: No Symptoms Reported Hematologic/Lymphatic: No Symptoms Reported Immunological/Allergic: no symptoms reported Past Wbyeqny-Zbathh-Jjwbbb Hx Patient Social History Tobacco Use?: Yes Use of E-Cig and/or Vaping dev: No Substance use?: No Alcohol Use?: No Seasonal Allergies Seasonal Allergies: No Past Medical History Surgery/Hospitalization HX: COPD Surgeries: Yes Cardiac, Coronary Stent Respiratory: Yes Asthma, COPD Cardiac: Yes (STEMI 05/19/21 WITH STENTS X 2) Heart Attack Neurological: Yes TIA Genitourinary: No Gastrointestinal: No Musculoskeletal: No Endocrine: No HEENT: No Cancer: No Psychosocial: No Integumentary: No Blood Disorders: No Family Medical History Reviewed Nursing Family Hx No Pertinent Family Hx SOCIAL HISTORY: -SMOKES 1 PPD -DENIES ETOH -DENIES DRUG USE PAST SURGICAL HISTORY: -CARDIAC CATH WITH STENTS X 2 TO RCA AND LEFT CIRC 05/19/[address] JORDAN Physical Exam Vital Signs Vital Signs - First Documented 06/20/22 06/20/22 10:11 13:45 Temp 36.3 Pulse 102 Resp 38 B/P (MAP) 128/91 (103) Pulse Ox 98 O2 Delivery Room Air O2 Flow Rate 2.00 Capillary Refill : Height, Weight, BMI Height: 5'10.00" Weight: 185lbs. 0oz. 83.809647qg; 27.98 BMI Method:Stated General Appearance: Severe Distress HEENT: Normal ENT Inspection Neck: Full Range of Motion, Normal Inspection, Non Tender, Supple Respiratory: Other (Tenderness palpation right lateral chest wall. No Obvious crepitus. No deformity. Severe respiratory distress with tachypnea. Rhonchi bilateral lung coburn, worse in the left base) Cardiovascular: No Murmur, Normal Peripheral Pulses, Tachycardia Gastrointestinal: Normal Bowel Sounds, No Organomegaly, Non Tender, Soft Extremity: Normal Capillary Refill, Normal Inspection, Normal Range of Motion, Non Tender, No Calf Tenderness Neurologic/Psychiatric: Alert, Oriented x3, No Motor/Sensory Deficits Skin: Normal Color, Warm/Dry Focused Exam Lactate Level 06/20/22 10:28: Lactic Acid Level 1.89 Lactic Acid Level Laboratory Tests Test 06/20/22 10:28 Lactic Acid Level 1.89 MMOL/L (0.50-2.00) Procedures/Interventions Suture Size: 4-0 Progress/Results/Core Measures Suspected Sepsis SIRS Temperature: Pulse: Respiratory Rate: Laboratory Tests 06/20/22 10:19: White Blood Count 17.3H Blood Pressure / Mean: 06/20/22 10:28: Lactic Acid Level 1.89 Laboratory Tests 06/20/22 10:19: Creatinine 1.23, Platelet Count 455H, Total Bilirubin 0.6 Results/Orders Lab Results Laboratory Tests Test 06/20/22 10:19 06/20/22 10:28 Range/Units White Blood Count 17.3 H 4.3-11.0 10^3/uL Red Blood Count 4.39 4.30-5.52 10^6/uL Hemoglobin 12.6 L 13.3-17.7 g/dL Hematocrit 38 L 40-54 % Mean Corpuscular Volume 86 80-99 fL Mean Corpuscular Hemoglobin 29 25-34 pg Mean Corpuscular Hemoglobin Concent 33 32-36 g/dL Red Cell Distribution Width 13.5 10.0-14.5 % Platelet Count 455 H 130-400 10^3/uL Mean Platelet Volume 9.3 9.0-12.2 fL Immature Granulocyte % (Auto) 1 % Neutrophils (%) (Auto) 76 H 42-75 % Lymphocytes (%) (Auto) 13 12-44 % Monocytes (%) (Auto) 8 0-12 % Eosinophils (%) (Auto) 2 0-10 % Basophils (%) (Auto) 0 0-10 % Neutrophils # (Auto) 13.1 H 1.8-7.8 10^3/uL Lymphocytes # (Auto) 2.3 1.0-4.0 10^3/uL Monocytes # (Auto) 1.4 H 0.0-1.0 10^3/uL Eosinophils # (Auto) 0.3 0.0-0.3 10^3/uL Basophils # (Auto) 0.0 0.0-0.1 10^3/uL Immature Granulocyte # (Auto) 0.1 0.0-0.1 10^3/uL Neutrophils % (Manual) 76 % Lymphocytes % (Manual) 12 % Monocytes % (Manual) 7 % Eosinophils % (Manual) 3 % Basophils % (Manual) 0 % Band Neutrophils 2 % Sodium Level 132 L 135-145 MMOL/L Potassium Level 4.3 3.6-5.0 MMOL/L Chloride Level 93 L 98-107 MMOL/L Carbon Dioxide Level 23 21-32 MMOL/L Anion Gap 16 H 5-14 MMOL/L Blood Urea Nitrogen 21 H 7-18 MG/DL Creatinine 1.23 0.60-1.30 MG/DL Estimat Glomerular Filtration Rate 68 BUN/Creatinine Ratio 17 Glucose Level 153 H 70-105 MG/DL Calcium Level 9.6 8.5-10.1 MG/DL Corrected Calcium 10.0 8.5-10.1 MG/DL Total Bilirubin 0.6 0.1-1.0 MG/DL Aspartate Amino Transf (AST/SGOT) 29 5-34 U/L Alanine Aminotransferase (ALT/SGPT) 45 0-55 U/L Alkaline Phosphatase 101 40-136 U/L Total Protein 8.5 H 6.4-8.2 GM/DL Albumin 3.5 3.2-4.5 GM/DL Lactic Acid Level 1.89 0.50-2.00 MMOL/L Influenza Type A (RT-PCR) Not Detected Not Detecte Influenza Type B (RT-PCR) Not Detected Not Detecte SARS-CoV-2 RNA (RT-PCR) Not Detected Not Detecte My Orders Orders - JERARDO CARNEY DO Cbc With Automated Diff (06/20/22 10:19) Comprehensive Metabolic Panel (06/20/22 10:19) Blood Culture (06/20/22 10:19) Chest 1 View Ap/Pa Only (06/20/22 10:19) Ed Iv/Invasive Line Start (06/20/22 10:19) Vital Signs Adult Sepsis Patie Q15M (06/20/22 10:19) O2 (06/20/22 10:19) Lactic Acid Analyzer (06/20/22 10:19) Covid 19 Inhouse Test (06/20/22 10:19) Influenza A And B By Pcr (06/20/22 10:19) Morphine Injection (Morphine Injection (06/20/22 10:19) Manual Differential (06/20/22 10:19) Ct Chest/Abdomen/Pelvis W (06/20/22 10:38) Iohexol Injection (Omnipaque 350 Mg/Ml 1 (06/20/22 11:00) Received Contrast (Hold Metformin- Contr (06/20/22 11:00) Sodium Chloride Flush (Catheter Flush Sy (06/20/22 11:00) Ns (Ivpb) (Sodium Chloride 0.9% Ivpb Bag (06/20/22 11:00) Piperacillin Sodium/Tazobactam (Zosyn Vi (06/20/22 12:15) Hydromorphone Injection (Dilaudid Inject (06/20/22 12:15) Medications Given in ED Vital Signs/I&O 06/20/22 06/20/22 10:11 13:45 Temp 36.3 36.3 Pulse 102 96 Resp 38 20 B/P (MAP) 128/91 (103) 145/75 Pulse Ox 98 95 O2 Delivery Room Air Nasal Cannula O2 Flow Rate 2.00 06/21/22 00:00 Intake Total 100 ml Balance 100 ml Capillary Refill : ECG Comment Sinus tachycardia with a rate of 101 bpm. Normal intervals. Normal axis. Severe motion artifact due to the patient's respiratory distress. No obvious STEMI. No obvious ectopy. Critical Care Note Critical Care Total Time (minutes) 60 minutes of critical care time spent in direct patient management. This includes management of hypoxia, tachycardia, interpretation of imaging, labs and consultation with multiple specialists in attempt to transfer the patient. Departure Communication (Admissions) Patient initially with significant pain, increased work of breathing, tachycardia essentially doubled over the bed upon arrival. This improved with pain medications and providing oxygen. His initial oxygen saturations around 86 to 87% on room air. He does not typically require oxygen therapy. His chemistry shows no evidence for elevated LFTs, concerned after his fall that there may be some liver injury or damage. Slightly elevated BUN but otherwise normal overall renal function electrolytes are unremarkable. Does have leukocytosis with a slight left shift. CT scan shows large right hilar mass with obstruction of mid and lower bronchi causing postobstructive issues. He also has a pleural effusion on the right side. Record review shows that he had a CT scan in December when he was hospitalized showing a right hilar mass. This has significantly increased in size since that evaluation and is now causing bronchial obstruction. He has no obvious traumatic injuries from his fall, I think he discussed with short of breath that he collapsed to the ground. There was some initial concern for rib fractures however I think all of his pain is likely related to the lung mass. This is very likely neoplastic based on appearance and radiology read, rapid progression. I am concerned about a possible postobstructive pneumonia given his significant leukocytosis. I would admit him a dose of Zosyn because of this. His tachycardia improved with the administration of pain medication. He has no evidence for dehydration, no indication for IV fluids. He is tolerating p.o. here. I did speak with his at bedside as well. They state they did not follow-up after his previous discharge. Initially, [facility] [place]. They are at capacity and cannot accept transfers at this time. Then spoke with [facility] in [place] and waiting for callback. 1301: Patient Accepted to [facility]. Dr. Styles. He likely needs pulmonology consult for possible bronchoscopy, stenting, and biopsy which is not available at any of our facilities. Impression Primary Impression: Mass of right lung Additional Impressions: Leukocytosis Qualified Codes: D72.829 - Elevated white blood cell count, unspecified Hypoxia Right-sided chest pain Disposition: XFER SHT-TRM HOSP Condition: Improved Admissions Decision to Admit Reason: Admit from ER (General) Departure-Patient Inst. Referrals: SALIMA NUÑEZ MD (PCP) Primary Care Physician JERARDO CARNEY DO Jun 20, 2022 10:38
[2022-06-20 10:47] LABS: ALBUMIN 3.5 GM/DL (3.2-4.5); BILIRUBIN,TOTAL 0.6 MG/DL (0.1-1.0); CALCIUM 9.6 MG/DL (8.5-10.1); CREATININE SERUM 1.23 MG/DL (0.60-1.30); POTASSIUM 4.3 MMOL/L (3.6-5.0); TOTAL PROTEIN 8.5 GM/DL (6.4-8.2)
--- NOTE | 2022-06-20 10:47 | Diagnostic Imaging Report ---
INDICATION: Shortness of air. COMPARISON: 01/05/2022 FINDINGS: Single frontal radiographic view of the chest was obtained and demonstrates interval development of moderate, potentially complex, right basilar effusion with associated patchy right basilar airspace opacity. Left lung remains clear. There is no large effusion on the left. No pneumothorax seen on either side. Cardiac silhouette and pulmonary vasculature are within normal limits. Osseous structures show no gross acute abnormalities. IMPRESSION: 1. New moderate right basilar effusion with probable associated right basilar atelectasis and/or infiltrate. Dictated by: Dictated on workstation # [id number]
[2022-06-20 10:59] LABS: BAND NEUTROPHILS 2 %; BASOPHILS % (MANUAL) 0 %; EOSINOPHILS % (MANUAL) 3 %; LYMPHOCYTES % (MANUAL) 12 %; MONOCYTES % (MANUAL) 7 %; NEUTROPHILS % (MANUAL) 76 %
[2022-06-20] MEDS ORDERED: HOLD METFORMIN - RECEIVED CONTRAST 20 ML VIAL IV SCH (11:00)
[2022-06-20] MEDS ORDERED: CATHETER FLUSH 10 ML SYR IV PRN (11:00)
[2022-06-20] MEDS ORDERED: IOHEXOL 350 MG/ML 100 ML (OMNIPAQUE 350) VIAL IV ONE (11:00)
[2022-06-20] MEDS ORDERED: NS 100 ML (IVPB) BAG IV ONE (11:00)
--- NOTE | 2022-06-20 12:01 | Diagnostic Imaging Report ---
PROCEDURE: CT chest, abdomen, and pelvis with contrast. TECHNIQUE: Multiple contiguous axial images were obtained through the chest, abdomen, and pelvis after the administration of intravenous contrast. Auto Exposure Controls were utilized during the CT exam to meet ALARA standards for radiation dose reduction. INDICATION: Right-sided pain after a fall. COMPARISON: Exam compared with CT chest, abdomen, and pelvis from 01/04/2022. FINDINGS: CHEST: No rib fracture deformity. Sternum, manubrium, and diaphragm are intact. The visualized structures of the shoulders appeared intact. Thoracic vertebral statures are normal and aligned anatomically. No chest fracture or suspicious bone lesion. Right hilar mass has increased in size and is difficult to separate from extensive postobstructive consolidation and atelectasis in the right middle lobe peripheral to the lesion. There are endobronchial filling defects now within the bronchus intermedius as well as the right middle and lower lobe bronchi. Malignancy is suspected and if not already performed, correlative bronchoscopy is recommended. I am not provided any history of a known malignant diagnosis. There is a new small right pleural effusion, nonloculated. There is increased size of a borderline right lower paratracheal mediastinal node of 1.9 x 0.9 cm. No convincing thoracic rajiv metastatic disease. There is some dependent right lower lobe juxtapleural partial atelectasis. No left lung mass. Thoracic aorta is intact. No chest wall hematoma. ABDOMEN AND PELVIS: There is a tiny hiatal hernia. The adrenal glands are negative. There is fatty infiltration of the liver but no detectable liver mass. Spleen and pancreas are unremarkable. The gallbladder is normal. The unobstructed kidneys appeared normal. There is no abdominal or pelvic mesenteric or retroperitoneal lymphadenopathy. There is no hemoperitoneum or ascites. No abdominopelvic fracture, acute or suspicious bony lesion. There are few noninflamed colonic diverticula. There is a fatty umbilical hernia, noninflamed. No acute-appearing abdominal wall pathology. IMPRESSION: 1. No post-traumatic sequelae in the chest, abdomen, or pelvis identified. 2. Enlarging right hilar mass and progressive postobstructive disease with endobronchial filling defects within the bronchus intermedius, the right lower and middle lobe airways. Progressive lung cancer is presumed, correlate with bronchoscopy. There is a new small right pleural effusion without evidence for hemothorax. 3. Equivocal right lower paratracheal mediastinal lymph node. 4. Abdomen and pelvis: No findings of injury, metastatic disease, inflammatory process, obstructive features, or acute-appearing abnormalities. Dictated by: Dictated on workstation # [id number]
[2022-06-20] MEDS ORDERED: PIPERACILLIN SODIUM/TAZOBACTAM 4.5 GM in NS (IVPB) 100 ML IV ONE (12:15)
[2022-06-20] MEDS ORDERED: HYDROmorphone 2 MG/ML VIAL (DILAUDID) IV ONE (12:15)
[2022-06-20 13:45] VITALS: BP 145/75
== END 2022-06-20 13:45 | disposition short-term general hospital (02) ==
LOC: EDUNIT# 10:11 → ER FS 10:17
DX: J90 Pleural effusion, not elsewhere classified (principal); D72.829 Elevated white blood cell count, unspecified; R09.02 Hypoxemia; R79.89 Other specified abnormal findings of blood chemistry; F17.210 Nicotine dependence, cigarettes, uncomplicated; Z95.5 Presence of coronary angioplasty implant and graft; Z20.822 Contact with and (suspected) exposure to COVID-19; Z28.310 Unvaccinated for COVID-19; W18.30XA Fall on same level, unspecified, initial encounter
CPT/HCPCS: 36415; 71045; 71260; 74177; 80053; 83605; 85007; 85027; 87040; 87636; 93005